=== PATIENT | female | born 1930 | race Caucasian/White ===

== ENCOUNTER → 2017-08-28 | Outpatient (CLI) | payer MEDICARE ==
--- NOTE | 2017-08-28 14:48 | XR ---
EXAMINATION TYPE: XR chest 2V DATE OF EXAM: 08/28/2017 COMPARISON: NONE HISTORY: COPD and dyspnea TECHNIQUE: Frontal and lateral views of the chest are obtained. FINDINGS: Left-sided pacemaker is present, there are leads in the right atrium and ventricle. Heart size is borderline increased. Increased lung lines could be indicative of COPD. No airspace disease, pneumothorax, or pleural effusion is evident. Arthropathy noted at the acromioclavicular joints. IMPRESSION: Borderline cardiac size.
== END | disposition home or self-care (01) ==
LOC: RADXRMAIN 13:07
PROVIDERS: ATTEND Family Medicine
DX: J44.9 Chronic obstructive pulmonary disease, unspecified (principal)
CPT/HCPCS: 71020

== ENCOUNTER 2018-01-02 14:23 | Emergency (ER) | payer MEDICARE ==
[2018-01-02 14:39] VITALS: TEMP 97.2
[2018-01-02] MEDS ORDERED: SODIUM CHLORIDE 0.9% 1,000 ML IV STA ×2 (14:50)
--- NOTE | 2018-01-02 15:04 | ED ---
General Adult HPI - General Chief complaint: Recheck/Abnormal Lab/Rx Stated complaint: aneurysm-sent by Dr. Tai Seen by Provider: 01/02/18 14:44 Source: patient, family, RN notes reviewed, old records reviewed Mode of arrival: wheelchair Limitations: no limitations - History of Present Illness Initial comments: This is an 87-year-old female to the ER for evaluation of outpatient lab study. Patient denies any complaints. Asymptomatic. Patient unsure of why she is in the hospital. She has no history of about pain no feelings of lightheadedness dizziness or weakness. No nausea vomiting, no recent fevers - Related Data Home Medications Medication Instructions Recorded Confirmed Albuterol Nebulized [Ventolin 2.5 mg INHALATION RT-TID 01/02/18 01/02/18 Nebulized] Albuterol Sulfate [Proair Hfa] 1 - 2 puff INHALATION RT-Q4H PRN 01/02/18 Alendronate Sodium [Fosamax] 70 mg PO TH 01/02/18 01/02/18 Aspirin 81 mg PO DAILY 01/02/18 01/02/18 Budesonide 1 mg INHALATION RT-BID 01/02/18 01/02/18 Calcium Carbonate [Calcium] 600 mg PO DAILY 01/02/18 01/02/18 Ensure 1 can PO BID 01/02/18 01/02/18 Lisinopril [Zestril] 2.5 mg PO DAILY 01/02/18 01/02/18 Lovastatin [Mevacor] 20 mg PO DAILY 01/02/18 01/02/18 Mometasone/Formoterol [Dulera 200 2 puff INHALATION RT-BID 01/02/18 01/02/18 Mcg/5 Mcg Inhaler] NIFEdipine XL [Procardia Xl] 30 mg PO DAILY 01/02/18 01/02/18 metFORMIN HCL [Glucophage] 1,000 mg PO AC-BRKFST 01/02/18 01/02/18 Allergies Allergy/AdvReac Type Severity Reaction Status Date / Time latex Allergy Rash/Hives Verified 01/02/18 14:58 Penicillins Allergy Rash/Hives Verified 01/02/18 14:58 strawberry Allergy Rash/Hives Verified 01/02/18 14:58 Review of Systems ROS Statement: Those systems with pertinent positive or pertinent negative responses have been documented in the HPI. ROS Other: All systems not noted in ROS Statement are negative. 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 Absent: scleral icterus, conjunctival injection, periorbital swelling ENT exam: Present: normal exam, mucous membranes moist Neck exam: Present: normal inspection. Absent: tenderness, meningismus, lymphadenopathy Respiratory exam: Present: normal lung sounds bilaterally. Absent: respiratory distress, wheezes, rales, rhonchi, stridor Cardiovascular Exam: Present: regular rate, normal rhythm, normal heart sounds. Absent: systolic murmur, diastolic murmur, rubs, gallop, clicks GI/Abdominal exam: Present: soft, normal bowel sounds. Absent: distended, tenderness, guarding, rebound, rigid Extremities exam: Present: normal inspection, full ROM, normal capillary refill. Absent: tenderness, pedal edema, joint swelling, calf tenderness Back exam: Present: normal inspection Neurological exam: Present: alert, oriented X3, CN II-XII intact Psychiatric exam: Present: normal affect, normal mood Skin exam: Present: warm, dry, intact, normal color. Absent: rash Course Vital Signs 01/02/18 14:34 Temperature 97.2 F L Pulse Rate 85 Respiratory 18 Rate Blood Pressure 148/67 O2 Sat by Pulse 94 L Oximetry - Reevaluation(s) Reevaluation #1: 01/02/18 15:02 Outpatient computed tomography scan is reviewed 01/02/18 15:02 Spoke with passive surgery risk control manager here at this hospital, recommends transfer [facility] Reevaluation #2: 01/02/18 15:02 Spoke with patient's family updated, questions answered Medical Decision Making - Medical Decision Making 87 female the ER for evaluation. Patient presents ER for evaluation regarding outpatient lab studies showing positive AAA, spoke with vascular surgery risk control manager who also spoke with vascular surgery at [facility] who have Accepted transfer a patient - Radiology Data Radiology results: report reviewed (CT abd pelvis positive AAA), image reviewed Critical Care Time Critical Care Time: Yes Total Critical Care Time: 31 Disposition Clinical Impression: Abdominal aortic aneurysm Disposition: OTHER INSTITUTION NOT DEFINED Condition: Critical Referrals: Lydia Hill MD [Primary Care Provider] - 1-2 days - Out of Hospital Transfer - Req. Specs Out of Hospital Transfer - Requested Specifics: Other Emergency Center ([facility])
[2018-01-02 15:12] VITALS: BP 158/83; PULSE 73; RESP 19
[2018-01-02 15:20] LABS: Basophils # (A) 0.1 k/uL (0-0.2); Basophils % (A) 1 %; Eosinophils # (A) 0.3 k/uL (0-0.7); Eosinophils % (A) 3 %; HCT 36.1 % (34.0-46.0); HGB 11.3 gm/dL (11.4-16.0); Hypochromasia Slight; Lymphocytes # (A) 1.9 k/uL (1.0-4.8); Lymphocytes % (A) 17 %; MCH 26.9 pg (25.0-35.0); MCHC 31.4 g/dL (31.0-37.0); MCV 85.8 fL (80.0-100.0); Mean Platelet Volume 7.5; Monocytes # (A) 0.6 k/uL (0-1.0); Monocytes % (A) 5 %; Neutrophils # (A) 8.2 k/uL (1.3-7.7); Neutrophils % (A) 73 %; Platelet Count 313 k/uL (150-450); RBC 4.21 m/uL (3.80-5.40); RDW 14.6 % (11.5-15.5); WBC 11.3 k/uL (3.8-10.6)
[2018-01-02 15:26] LABS: Partial Thromboplastin Time 23.5 sec (22.0-30.0)
[2018-01-02 15:31] LABS: Albumin 4.1 g/dL (3.5-5.0); Calcium 9.7 mg/dL (8.4-10.2); Magnesium 1.5 mg/dL (1.6-2.3); Potassium 4.6 mmol/L (3.5-5.1); Total Bilirubin 0.4 mg/dL (0.2-1.3)
[2018-01-02 15:45] LABS: Creatine Kinase 51 U/L (30-135)
[2018-01-02 15:56] LABS: Creatine Kinase MB 1.2 ng/mL (0.0-2.4)
[2018-01-02 15:58] LABS: Troponin I <0.012 ng/mL (0.000-0.034)
== END 2018-01-02 15:15 | disposition short-term general hospital (02) ==
LOC: EC 14:23
DX: I71.4 Abdominal aortic aneurysm, without rupture (principal); E78.5 Hyperlipidemia, unspecified; J44.9 Chronic obstructive pulmonary disease, unspecified; Z87.891 Personal history of nicotine dependence; Z79.51 Long term (current) use of inhaled steroids; Z79.82 Long term (current) use of aspirin; Z79.84 Long term (current) use of oral hypoglycemic drugs; Z79.899 Other long term (current) drug therapy; Z88.0 Allergy status to penicillin; Z91.018 Allergy to other foods; Z91.040 Latex allergy status
CPT/HCPCS: 99285 ×2; 36415 ×2; 86900; 86901; 80053; 82565; 82550; 82553; 83605; 83735; 84520; 84484; 85025; 85610; 85730; 86850; 71260; Q9967

== ENCOUNTER → 2018-01-02 | Outpatient (CLI) | payer MEDICARE ==
--- NOTE | 2018-01-02 13:55 | CT ---
EXAMINATION TYPE: CT chest w con DATE OF EXAM: 01/02/2018 COMPARISON: Radiograph 08/28/2017 HISTORY: 87-year-old female Solitary lung mass TECHNIQUE: Contiguous axial scanning of the chest after the administration of 100 mL of Omnipaque 300 . Coronal/sagittal reconstructions performed. CT DLP: 381.1mGycm. Automatic exposure control utilized for a dose reduction. FINDINGS: Left anterior chest wall pacemaker generator with right atrial and right ventricular leads. There is some nodularity within the inferior left thyroid gland which can be further evaluated with thyroid ul trasound, axial images 3 and 4. Heart upper limits of normal in size without pericardial effusion. Extensive coronary vessel calcific ations are present in remarkable for coronary artery disease. Ascending aorta measures normal size at 3.2 cm. There is conventional arterial vessel branching anato my with mild atherosclerotic narrowing at the left subclavian artery origin and moderate atherosclero tic calcifications, and eccentric and ulcerating plaque throughout the thoracic aorta. The mid descen ding thoracic aorta is aneurysmal at 3.4 cm and the distal descending thoracic aorta is aneurysmal at 3.7 cm. At least moderate atherosclerotic narrowing at the origin of the SMA and possibly severe at the origi n of the celiac axis. Prominent assess chronic changes at the origin of the bilateral renal arteries. There is a large infrarenal abdominal aortic aneurysm measuring 7.3 cm wide by 7.4 cm AP, series 8 im age 34 and series 9 image 57 on the coronal and sagittal plane, respectively. There is suggestion of some focal contrast extension into 2 areas of the prominent crescentic plaque/thrombus, axial image 7 4 and 81 with contrast collections measuring up to 1.5 and 1.3 cm, respectively. There is also appare nt displacement and thickening of the anterior wall measuring up to 1.8 cm, reference axial image 79 and series 9 sagittal image 58. The right common iliac artery is ectatic at 1.7 cm and the left common iliac artery near its bifurcat ion is ectatic at 1.5 cm. There is focal rounded groundglass density in the peripheral right upper lobe measuring 2.9 cm. A mor e confluent solid component along the superior margin of the density measures 9 mm. Some additional s atellite nodularity is present measuring up to 4 mm, axial image 20, 21, 24, and 29. Additional scattered pulmonary nodules measuring up to 5 mm sections in the subpleural right middle l obe axial image 34, right mid lung along the major fissure axial image 32. Not a consolidation or pleural effusion. COPD with mild upper lung emphysema. Bones: No osseous destructive process. IMPRESSION: 1. 7.4 cm AAA. There are 2 areas of focal bleeding into prominent mural based plaque/thrombus and hamida arent thickening of the anterior aneurysm wall suspicious for intramural hematoma and impending ruptu re. Urgent vascular surgery consultation recommended. 2. A 2.9 cm focal rounded area of groundglass in the right upper lobe. Lungs appear margin, a more so lid component measuring 9 mm is suggested. There are some satellite nodules in the right lung measuri ng up to 5 mm. Infectious or inflammatory etiology is including pneumonia and DECISION ANALYST are considerations. 3 month follow-up exam recommended to exclude lymphoma or JUDY. 3. COPD with mild emphysema. 4. Thyroid nodularity which can be further evaluated with thyroid ultrasound. Critical findings called to Kirstin Pulido at 1:50 PM. The clinician's office will contact the patient and also inform the emergency room to expect the patient shortly.
== END | disposition home or self-care (01) ==
LOC: RADCTMAIN 11:36
PROVIDERS: ATTEND Nurse Practitioner
DX: I71.4 Abdominal aortic aneurysm, without rupture (principal); R91.8 Other nonspecific abnormal finding of lung field; J43.9 Emphysema, unspecified; R58 Hemorrhage, not elsewhere classified
CPT/HCPCS: 82565; 84520; 71260; 36415; Q9967

== ENCOUNTER 2018-03-16 13:49 | Inpatient (IN) | payer MEDICARE ==
[2018-03-16] MEDS ORDERED: FUROSEMIDE 10 MG/ML 10 ML VIAL IV STA (13:52)
[2018-03-16] MEDS ORDERED: FUROSEMIDE 10 MG/ML 4 ML VIAL IV STA (13:52)
[2018-03-16] MEDS ORDERED: SODIUM CHLORIDE 0.9% 1,000 ML IV STA (13:58)
[2018-03-16] MEDS ORDERED: NITROGLYCERIN OINT 1 INCH/GM PACKET TOPICAL STA (14:05)
[2018-03-16 14:15] LABS: Basophils # (A) 0.1 k/uL (0-0.2); Basophils % (A) 0 %; Eosinophils % (A) 0 %; HCT 34.2 % (34.0-46.0); HGB 10.6 gm/dL (11.4-16.0); Hypochromasia Marked; Lymphocytes # (A) 4.1 k/uL (1.0-4.8); Lymphocytes % (A) 17 %; MCH 26.5 pg (25.0-35.0); MCV 85.6 fL (80.0-100.0); Mean Platelet Volume 7.2; Monocytes # (A) 0.7 k/uL (0-1.0); Monocytes % (A) 3 %; Neutrophils # (A) 18.9 k/uL (1.3-7.7); Neutrophils % (A) 79 %; Platelet Count 455 k/uL (150-450); RDW 15.4 % (11.5-15.5); WBC 24.1 k/uL (3.8-10.6)
[2018-03-16 14:19] LABS: ABG Base Excess -3.2 mmol/L; ABG HCO3 27 mmol/L (21-25); ABG PO2 129 mmHg (83-108); ABG TCO2 30 mmol/L (19-24)
[2018-03-16 14:23] LABS: Albumin 4.1 g/dL (3.5-5.0); Calcium 9.1 mg/dL (8.4-10.2); Potassium 5.4 mmol/L (3.5-5.1); Total Bilirubin 0.2 mg/dL (0.2-1.3); Total Protein 6.8 g/dL (6.3-8.2)
[2018-03-16 14:28] LABS: ABG PCO2 92 mmHg (35-45); ABG PH 7.07 (7.35-7.45)
[2018-03-16 14:33] LABS: Prothrombin Time 10.1 sec (9.0-12.0)
[2018-03-16] MEDS ORDERED: ETOMIDATE 2 MG/ML 10 ML VIAL IVP STA (14:39)
[2018-03-16] MEDS ORDERED: SUCCINYLCHOLINE CHLORIDE VIAL 200 MG/10 ML VIAL IV STA (14:39)
[2018-03-16 14:43] LABS: D-Dimer 12.26 mg/L FEU (<0.60)
[2018-03-16 14:44] LABS: Partial Thromboplastin Time 20.9 sec (22.0-30.0)
[2018-03-16 14:46] LABS: Creatine Kinase MB 0.8 ng/mL (0.0-2.4); Troponin I 0.025 ng/mL (0.000-0.034)
[2018-03-16] MEDS ORDERED: PROPOFOL 1,000 MG in EMPTY BAG 1 BAG IV ONE (14:48)
--- NOTE | 2018-03-16 15:18 | ED ---
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 Review of system was gone from the family severe shortness of breath coughing got worse and chest pain with deep breaths, worse in the later part of the morning on arrival she basically was unresponsive she was she was struggling hard to breath - Related Data Home Medications Medication Instructions Recorded Confirmed Albuterol Nebulized [Ventolin 2.5 mg INHALATION RT-TID 01/02/18 03/16/18 Nebulized] Albuterol Sulfate [Proair Hfa] 1 - 2 puff INHALATION RT-Q4H PRN 01/02/18 Alendronate Sodium [Fosamax] 70 mg PO TH 01/02/18 03/16/18 Aspirin 81 mg PO DAILY 01/02/18 03/16/18 Budesonide 1 mg INHALATION RT-BID 01/02/18 03/16/18 Calcium Carbonate [Calcium] 600 mg PO DAILY 01/02/18 03/16/18 Ensure 1 can PO BID 01/02/18 03/16/18 Lisinopril [Zestril] 2.5 mg PO DAILY 01/02/18 03/16/18 Lovastatin [Mevacor] 20 mg PO DAILY 01/02/18 03/16/18 Mometasone/Formoterol [Dulera 200 2 puff INHALATION RT-BID 01/02/18 03/16/18 Mcg/5 Mcg Inhaler] NIFEdipine XL [Procardia Xl] 30 mg PO DAILY 01/02/18 03/16/18 metFORMIN HCL [Glucophage] 1,000 mg PO AC-BRKFST 01/02/18 03/16/18 Ipratropium Nebulized [Atrovent 0.5 mg INHALATION RT-Q6H 03/16/18 03/16/18 Nebulized] Montelukast Sodium [Singulair] 10 mg PO DAILY 03/16/18 03/16/18 Allergies Allergy/AdvReac Type Severity Reaction Status Date / Time latex Allergy Rash/Hives Verified 03/16/18 15:57 Penicillins Allergy Rash/Hives Verified 03/16/18 15:57 strawberry Allergy Rash/Hives Verified 03/16/18 15:57 Review of Systems ROS Statement: Those systems with pertinent positive or pertinent negative responses have been documented in the HPI. ROS Other: All systems not noted in ROS Statement are negative. 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 Eye: Pupils are equal, round and reactive to light, extra-ocular movements are intact; there is normal conjunctiva bilaterally. Ears, nose, mouth and throat: There are moist mucous membranes and no oral lesions. Neck: The neck is supple, there is no tenderness him elevated JV T Cardiovascular: There is a regular rate and rhythm is mild tachycardia Respiratory: To auscultation bilateral, crackles all the way to the top of the lungs bilateral Gastrointestinal: Soft, non-distended, non-tender abdomen without masses or organomegaly noted. There is no rebound or guarding present. Bowel sounds are unremarkable. Back: There is no tenderness to palpation in the midline. There is no obvious deformity. Musculoskeletal: Normal ROM, no tenderness, There is no pedal edema. There is no calf tenderness or swelling. No cords were appreciated. Neurological: CN II-XII intact, Cranial nerves III through XII are intact. There are no obvious motor or sensory deficits. Coordination appears grossly intact. Speech is normal. Psychiatric: Cooperative Limitations: altered mental status Course Vital Signs 03/16/18 03/16/18 03/16/18 13:56 14:10 14:26 Temperature 97.4 F L Pulse Rate 99 87 Pulse Rate [ 92 Slp Teacher ] Respiratory 28 H 24 Rate Blood Pressure 178/79 185/70 O2 Sat by Pulse 96 96 Oximetry 03/16/18 03/16/18 03/16/18 14:48 15:40 15:48 Temperature Pulse Rate 74 55 L 53 L Pulse Rate [ Slp Teacher ] Respiratory 24 20 20 Rate Blood Pressure 153/66 126/56 106/53 O2 Sat by Pulse 100 100 Oximetry 03/16/18 03/16/18 16:04 16:09 Temperature Pulse Rate Pulse Rate [ Slp Teacher ] Respiratory 20 Rate Blood Pressure 95/53 99/52 O2 Sat by Pulse 98 Oximetry EKG is atrial sensed ventricular paced rhythm ventricular rate is 101 LA interval is 176 QRS duration is 176 QT/QTC 396/520 this is a paced EKG She'll be admitted to Dr. Rodriguez and Dr. Bobby being the consult - Reevaluation(s) Reevaluation #1: CODE STATUS was discussed with the family, she is a full code for now 03/16/18 15:40 Procedures - Intubation Time Out Performed: Yes Sedative: Propofol Paralytic: Succinylcholine Laryngoscope: fiber optic video scope Size: 3 ET Tube Size: 7.5 ET Tube Uncuffed: Yes Tube Secured Depth (cm): 22 Tube Placement Confirmation: visualized tube passing through cords, equal breath sounds bilaterally, confirmation by capnometry Patient Tolerated Procedure: well Medical Decision Making - Lab Data Result diagrams: 03/16/18 13:54 03/16/18 13:54 Lab Results 03/16/18 03/16/18 03/16/18 Range/Units 13:54 13:54 13:54 WBC 24.1 H (3.8-10.6) k/uL RBC 4.00 (3.80-5.40) m/uL Hgb 10.6 L (11.4-16.0) gm/dL Hct 34.2 (34.0-46.0) % MCV 85.6 (80.0-100.0) fL MCH 26.5 (25.0-35.0) pg MCHC 31.0 (31.0-37.0) g/dL RDW 15.4 (11.5-15.5) % Plt Count 455 H (150-450) k/uL Neutrophils % 79 % Lymphocytes % 17 % Monocytes % 3 % Eosinophils % 0 % Basophils % 0 % Neutrophils # 18.9 H (1.3-7.7) k/uL Lymphocytes # 4.1 (1.0-4.8) k/uL Monocytes # 0.7 (0-1.0) k/uL Eosinophils # 0.0 (0-0.7) k/uL Basophils # 0.1 (0-0.2) k/uL Hypochromasia Marked PT (9.0-12.0) sec INR (<1.2) APTT (22.0-30.0) sec D-Dimer (<0.60) mg/L FEU Sample Site ABG pH (7.35-7.45) ABG pCO2 (35-45) mmHg ABG pO2 (83-108) mmHg ABG HCO3 (21-25) mmol/L ABG Total CO2 (19-24) mmol/L ABG O2 Saturation (94-97) % ABG Base Excess mmol/L Robert Test FiO2 % Sodium 142 (137-145) mmol/L Potassium 5.4 H (3.5-5.1) mmol/L Chloride 102 (98-107) mmol/L Carbon Dioxide 26 (22-30) mmol/L Anion Gap 14 mmol/L BUN 24 H (7-17) mg/dL Creatinine 1.10 H (0.52-1.04) mg/dL Est GFR (CKD-EPI)AfAm 53 (>60 ml/min/1.73 sqM) Est GFR (CKD-EPI)NonAf 46 (>60 ml/min/1.73 sqM) Glucose 233 H (74-99) mg/dL Plasma Lactic Acid David (0.7-2.0) mmol/L Calcium 9.1 (8.4-10.2) mg/dL Total Bilirubin 0.2 (0.2-1.3) mg/dL AST 17 (14-36) U/L ALT 21 (9-52) U/L Alkaline Phosphatase 55 (38-126) U/L Total Creatine Kinase 25 L (30-135) U/L CK-MB (CK-2) 0.8 (0.0-2.4) ng/mL CK-MB (CK-2) Rel Index 3.2 Troponin I 0.025 (0.000-0.034) ng/mL NT-Pro-B Natriuret Pep pg/mL Total Protein 6.8 (6.3-8.2) g/dL Albumin 4.1 (3.5-5.0) g/dL 03/16/18 03/16/18 03/16/18 Range/Units 13:54 13:54 13:54 WBC (3.8-10.6) k/uL RBC (3.80-5.40) m/uL Hgb (11.4-16.0) gm/dL Hct (34.0-46.0) % MCV (80.0-100.0) fL MCH (25.0-35.0) pg MCHC (31.0-37.0) g/dL RDW (11.5-15.5) % Plt Count (150-450) k/uL Neutrophils % % Lymphocytes % % Monocytes % % Eosinophils % % Basophils % % Neutrophils # (1.3-7.7) k/uL Lymphocytes # (1.0-4.8) k/uL Monocytes # (0-1.0) k/uL Eosinophils # (0-0.7) k/uL Basophils # (0-0.2) k/uL Hypochromasia PT 10.1 (9.0-12.0) sec INR 1.0 (<1.2) APTT 20.9 L (22.0-30.0) sec D-Dimer 12.26 H (<0.60) mg/L FEU Sample Site ABG pH (7.35-7.45) ABG pCO2 (35-45) mmHg ABG pO2 (83-108) mmHg ABG HCO3 (21-25) mmol/L ABG Total CO2 (19-24) mmol/L ABG O2 Saturation (94-97) % ABG Base Excess mmol/L Robert Test FiO2 % Sodium (137-145) mmol/L Potassium (3.5-5.1) mmol/L Chloride (98-107) mmol/L Carbon Dioxide (22-30) mmol/L Anion Gap mmol/L BUN (7-17) mg/dL Creatinine (0.52-1.04) mg/dL Est GFR (CKD-EPI)AfAm (>60 ml/min/1.73 sqM) Est GFR (CKD-EPI)NonAf (>60 ml/min/1.73 sqM) Glucose (74-99) mg/dL Plasma Lactic Acid David 1.2 (0.7-2.0) mmol/L Calcium (8.4-10.2) mg/dL Total Bilirubin (0.2-1.3) mg/dL AST (14-36) U/L ALT (9-52) U/L Alkaline Phosphatase (38-126) U/L Total Creatine Kinase (30-135) U/L CK-MB (CK-2) (0.0-2.4) ng/mL CK-MB (CK-2) Rel Index Troponin I (0.000-0.034) ng/mL NT-Pro-B Natriuret Pep 8180 pg/mL Total Protein (6.3-8.2) g/dL Albumin (3.5-5.0) g/dL 03/16/18 Range/Units 14:10 WBC (3.8-10.6) k/uL RBC (3.80-5.40) m/uL Hgb (11.4-16.0) gm/dL Hct (34.0-46.0) % MCV (80.0-100.0) fL MCH (25.0-35.0) pg MCHC (31.0-37.0) g/dL RDW (11.5-15.5) % Plt Count (150-450) k/uL Neutrophils % % Lymphocytes % % Monocytes % % Eosinophils % % Basophils % % Neutrophils # (1.3-7.7) k/uL Lymphocytes # (1.0-4.8) k/uL Monocytes # (0-1.0) k/uL Eosinophils # (0-0.7) k/uL Basophils # (0-0.2) k/uL Hypochromasia PT (9.0-12.0) sec INR (<1.2) APTT (22.0-30.0) sec D-Dimer (<0.60) mg/L FEU Sample Site R radial ABG pH 7.07 L* (7.35-7.45) ABG pCO2 92 H* (35-45) mmHg ABG pO2 129 H (83-108) mmHg ABG HCO3 27 H (21-25) mmol/L ABG Total CO2 30 H (19-24) mmol/L ABG O2 Saturation 97.0 (94-97) % ABG Base Excess -3.2 mmol/L Robert Test Yes FiO2 65 % Sodium (137-145) mmol/L Potassium (3.5-5.1) mmol/L Chloride (98-107) mmol/L Carbon Dioxide (22-30) mmol/L Anion Gap mmol/L BUN (7-17) mg/dL Creatinine (0.52-1.04) mg/dL Est GFR (CKD-EPI)AfAm (>60 ml/min/1.73 sqM) Est GFR (CKD-EPI)NonAf (>60 ml/min/1.73 sqM) Glucose (74-99) mg/dL Plasma Lactic Acid David (0.7-2.0) mmol/L Calcium (8.4-10.2) mg/dL Total Bilirubin (0.2-1.3) mg/dL AST (14-36) U/L ALT (9-52) U/L Alkaline Phosphatase (38-126) U/L Total Creatine Kinase (30-135) U/L CK-MB (CK-2) (0.0-2.4) ng/mL CK-MB (CK-2) Rel Index Troponin I (0.000-0.034) ng/mL NT-Pro-B Natriuret Pep pg/mL Total Protein (6.3-8.2) g/dL Albumin (3.5-5.0) g/dL Critical Care Time Total Critical Care Time: 60 Critical Care Time: She was seen within the minutes after arrival to the ER, she was in a severe severe distress BiPAP was started right away and after listening to her lungs I ordered nitro paste 1 inch and Lasix 60 mg for congestive heart failure she seemed overloaded with the fluids and then we did the ABGs after starting the BiPAP pH was 7.07 and pCO2 was 92 after reviewing the blood gases, decided to intubate her she still quite lethargic 1 open her eyes and respond to the room she was intubated moved to the trauma room, orogastric tube was passed out as well confirmation was done with the bilateral breath sounds. He reviewed the labs white count is 27 d-dimer is quite elevated but she is not a candidate for CT chest angiogram she would need a VQ scan because her GFR is quite low BNP is 8000 180 troponin is negative she be admitted to ICU , Dr. Rm has been paged Disposition Clinical Impression: Pulmonary edema, Pneumonia, Respiratory failure Disposition: ADMITTED IP TO THIS HOSP
[2018-03-16] MEDS ORDERED: LEVOFLOXACIN 750MG-D5W PMX 750 MG in DEXTROSE/WATER 1 150ML.BAG IVPB STA (15:20)
[2018-03-16] MEDS ORDERED: cefTRIAXone 2,000 MG in SODIUM CHLORIDE 0.9% 100 ML IVPB STA (15:20)
[2018-03-16] MEDS ORDERED: MIDAZOLAM (PF) 1 MG/ML 5 ML VIAL IV STA (15:21)
[2018-03-16] MEDS ORDERED: NALOXONE 0.4 MG/ML 1 ML VIAL IV PRN (15:22)
[2018-03-16] MEDS ORDERED: MORPHINE SULFATE 4 MG/ML SYRINGE IV PRN (15:22)
[2018-03-16] MEDS ORDERED: cefTRIAXone IN SWFI 2,000 MG/20 ML SYRINGE IVP STA (15:27)
[2018-03-16] MEDS ORDERED: ALBUTEROL NEBULIZED 2.5 MG/3 ML INHALATION PRN (15:38)
[2018-03-16] MEDS ORDERED: MIDAZOLAM 2 MG/2 ML VIAL IV STA (15:48)
[2018-03-16 15:55] LABS: ABG PH 7.16 (7.35-7.45)
[2018-03-16 15:56] LABS: ABG Base Excess -3.7 mmol/L; ABG HCO3 25 mmol/L (21-25); ABG Oxygen Saturation 99.5 % (94-97); ABG PCO2 70 mmHg (35-45); ABG PO2 301 mmHg (83-108); ABG TCO2 27 mmol/L (19-24)
--- NOTE | 2018-03-16 16:00 | XR ---
EXAMINATION TYPE: XR chest 1V portable DATE OF EXAM: 03/16/2018 COMPARISON: 08/28/2017 INDICATION: Difficulty breathing, intubation TECHNIQUE: Single frontal view of the chest is obtained. FINDINGS: The heart size is normal. The pulmonary vasculature is prominent. There is an infiltrate in the left lung. Mild increased lung markings are present on the right. Cody elate for pulmonary edema. There is an endotracheal tube placed with the tip above the nelda. Nasogastric tube transverses the thorax with the tip in the midabdomen. Electronic device overlies left chest. EKG leads overlie the c hest. IMPRESSION: 1. Findings suggestive for pulmonary edema. Clinical correlation is recommended. Differential could i nclude pneumonia and other infectious etiologies. 2. Lines and catheters discussed above.
[2018-03-16] MEDS ORDERED: KETAMINE 10 MG/ML 20 ML VIAL IV ONE (16:10)
[2018-03-16] MEDS ORDERED: RX INFO: IV CONTRAST WAS GIVEN 1 EACH MISC MISCELLANE PRN (16:15)
--- NOTE | 2018-03-16 16:49 | CT ---
CT CHEST FOR PULMONARY EMBOLISM. EXAMINATION TYPE: CT angio chest DATE OF EXAM: 03/16/2018 INDICATION: Elevated D-Dimer CT DLP: 402 mGycm, Automated exposure control for dose reduction was used. CONTRAST: Patient injected with 80 mL of Isovue 370. COMPARISON: 01/02/2018 TECHNIQUE: CT of the chest is performed on a spiral scan at 2 mm thick sections. Study is performed with intravenous contrast timed for evaluation for pulmonary embolism. This will limit additional po rtions of the evaluation. 3-D MIP images reconstructed by the technologist are reviewed on the compu ter in the coronal and sagittal planes. FINDINGS: No persistent filling defects are evident to suggest an acute pulmonary embolism. There is a 1.1 cm aortopulmonic window lymph node present. Additional suspicious enlarged lymphadenop athy is not identified. The ascending aorta diameter at the level of the main pulmonary artery is 3. 3 cm. The main pulmonary artery diameter at the bifurcation is 2.8 cm. Small bilateral pleural effusions are present. Compressive atelectasis is adjacent. There is some mil d infiltrate in the left lower lobe. Scattered infiltrate is within the lingula. These findings are a n interval finding from 01/02/2018. There is a focal area of pneumonitis in the right upper lobe. Some underlying soft tissue density hamida ears to be present is estimated to measure 1.5 x 1.8 cm in size. Appears somewhat improved from the c omparison. Endotracheal tube tip is above the nelda. Nasogastric tube transverses the thorax with tip in body o f the stomach. Note is made of stent placement within the abdominal aorta within the [id number]. R ight kidney appears atrophic. Pancreas is atrophic. IMPRESSIONS: 1. No acute pulmonary embolism. 2. Pneumonitis soft tissue density right upper lobe appears smaller than the comparison of 01/02/2018. 3. New areas of infiltrate bilaterally discussed above
[2018-03-16] MEDS: PROPOFOL 1,000 MG in EMPTY BAG 1 BAG IV SCH ×2 (16:50→20:53)
[2018-03-16 17:13] LABS: Glucose,Whole Blood 194 mg/dL (75-99)
--- NOTE | 2018-03-16 17:15 | P.CNPUL ---
History of Present Illness Consult date: 03/16/18 Reason for consult: dyspnea, hypoxemia, pneumonia, lung mass, abnormal CXR/CT Chief complaint: Shortness of breath, respiratory failure History of present illness: Pulmonary consult dated 03/16/2018 This is an 87-year-old female who apparently presented to the emergency room with shortness of breath that began the day of admission. The patient was placed on BiPAP for poor saturations but did not tolerate that and the decision was made by the emergency room physician to intubate the patient. She was intubated had a chest x-ray which showed diffuse infiltrates consistent with heart failure. The patient had an elevated N-terminal proBNP. She went for a CT angiogram. There is no evidence of pulmonary embolism. She did have diffuse infiltrates consistent with either heart failure or pneumonia. There is also a mass in the right upper lobe and some diffuse adenopathy. In addition she has significant bilateral pleural effusions. Again, her N- terminal proBNP was elevated at 8180. The patient was given some Levaquin and Rocephin in the emergency room and transferred up to the ICU. She apparently has a known history of lung cancer but apparently has not has not wanted any treatment for lung cancer. I am not sure how was diagnosed. The lung cancer may represent that mastectomy in the right upper lobe. In addition, the patient has a history of diabetes hypertension COPD hyperlipidemia. ALLERGIES include latex penicillin and strawberries. Medications included Singulair Atrovent nebulizer treatments Glucophage Procardia XL Dulera lovastatin lisinopril albuterol updrafts albuterol inhaler Fosamax aspirin calcium carbonate and Ensure. I asked the emergency room physician to discuss CODE STATUS with the family but I don't know that it was done. 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 History of Any Multi-Drug Resistant Organisms: None Reported Past Surgical History: Bladder Surgery, Hysterectomy, Pacemaker Past Psychological History: No Psychological Hx Reported Smoking Status: Former smoker Past Alcohol Use History: None Reported Past Drug Use History: None Reported Medications and Allergies Home Medications Medication Instructions Recorded Confirmed Type Albuterol Nebulized [Ventolin 2.5 mg INHALATION RT-TID 01/02/18 03/16/18 History Nebulized] Albuterol Sulfate [Proair Hfa] 1 - 2 puff INHALATION RT-Q4H PRN 01/02/18 History Alendronate Sodium [Fosamax] 70 mg PO TH 01/02/18 03/16/18 History Aspirin 81 mg PO DAILY 01/02/18 03/16/18 History Budesonide 1 mg INHALATION RT-BID 01/02/18 03/16/18 History Calcium Carbonate [Calcium] 600 mg PO DAILY 01/02/18 03/16/18 History Ensure 1 can PO BID 01/02/18 03/16/18 History Lisinopril [Zestril] 2.5 mg PO DAILY 01/02/18 03/16/18 History Lovastatin [Mevacor] 20 mg PO DAILY 01/02/18 03/16/18 History Mometasone/Formoterol [Dulera 200 2 puff INHALATION RT-BID 01/02/18 03/16/18 History Mcg/5 Mcg Inhaler] NIFEdipine XL [Procardia Xl] 30 mg PO DAILY 01/02/18 03/16/18 History metFORMIN HCL [Glucophage] 1,000 mg PO AC-[id number] 01/02/18 03/16/18 History Ipratropium Nebulized [Atrovent 0.5 mg INHALATION RT-Q6H 03/16/18 03/16/18 History Nebulized] Montelukast Sodium [Singulair] 10 mg PO DAILY 03/16/18 03/16/18 History Allergies Allergy/AdvReac Type Severity Reaction Status Date / Time latex Allergy Rash/Hives Verified 03/16/18 15:57 Penicillins Allergy Rash/Hives Verified 03/16/18 15:57 strawberry Allergy Rash/Hives Verified 03/16/18 15:57 Physical Exam Osteopathic Statement: *. No significant issues noted on an osteopathic structural exam other than those noted in the History and Physical/Consult. Vitals: Vital Signs Temp Pulse Pulse Resp BP Pulse Ox 03/16/18 16:22 51 L 20 106/53 100 03/16/18 16:09 99/52 03/16/18 16:04 20 95/53 98 03/16/18 15:48 53 L 20 106/53 100 03/16/18 15:40 55 L 20 126/56 100 03/16/18 14:48 74 24 153/66 03/16/18 14:26 87 24 185/70 96 03/16/18 14:10 92 03/16/18 13:56 97.4 F L 99 28 H 178/79 96 Intake and Output 03/16/18 03/16/18 03/16/18 06:59 14:59 22:59 Intake Total 13.105 Output Total 225 Balance -211.895 Intake: Intake, IV Titration 13.105 Amount Propofol 1,000 mg In 13.105 Empty Bag 1 bag @ 10 MCG/ KG/MIN 3.97 mls/hr IV . Q24H [facility] Rx#:[id number] Output: Urine 225 Uretheral ([place]) 225 Other: Weight 66.224 kg No acute distress, sedated with an orally placed endotracheal tube. HEENT examination is grossly unremarkable. Mucous membranes are moist. Neck supple. Full range of motion. No adenopathy thyromegaly or neck vein distention. Cardiovascular examination reveals regular rhythm rate. S1-S2 normal. No S3 or S4. No discernible murmur noted. Lungs reveal diffuse bilateral rhonchi and crackles. Breath sounds are equal bilaterally. Abdomen soft with bowel sounds. No masses or tenderness. Extremities are intact. No cyanosis clubbing or edema. Skin is without rash or lesion. Neurologic examination could not be adequately assessed. Results - Laboratory Findings CBC and BMP: 03/16/18 13:54 03/16/18 13:54 ABG ABG pH 7.16 (7.35-7.45) L* 03/16/18 15:39 ABG pCO2 70 mmHg (35-45) H* 03/16/18 15:39 ABG pO2 301 mmHg (83-108) H 03/16/18 15:39 ABG O2 Saturation 99.5 % (94-97) H 03/16/18 15:39 PT/INR, D-dimer PT 10.1 sec (9.0-12.0) 03/16/18 13:54 INR 1.0 (<1.2) 03/16/18 13:54 D-Dimer 12.26 mg/L FEU (<0.60) H 03/16/18 13:54 Abnormal lab findings: Abnormal Labs 03/16/18 03/16/18 03/16/18 13:54 13:54 13:54 WBC 24.1 H Hgb 10.6 L Plt Count 455 H Neutrophils # 18.9 H APTT D-Dimer ABG pH ABG pCO2 ABG pO2 ABG HCO3 ABG Total CO2 ABG O2 Saturation Potassium 5.4 H BUN 24 H Creatinine 1.10 H Glucose 233 H Total Creatine Kinase 25 L 03/16/18 03/16/18 03/16/18 13:54 14:10 15:39 WBC Hgb Plt Count Neutrophils # APTT 20.9 L D-Dimer 12.26 H ABG pH 7.07 L* 7.16 L* ABG pCO2 92 H* 70 H* ABG pO2 129 H 301 H ABG HCO3 27 H ABG Total CO2 30 H 27 H ABG O2 Saturation 99.5 H Potassium BUN Creatinine Glucose Total Creatine Kinase - Diagnostic Findings Chest x-ray: report reviewed, image reviewed CT scan - chest: report reviewed (Labs, x-rays, and medications are reviewed.), image reviewed Assessment and Plan Assessment: Assessment Acute respiratory failure, likely multifactorial, in part related to heart failure, possible pneumonia, and possible COPD exacerbation. Vague history of lung cancer No evidence of pulmonary embolism History of COPD History of hypertension History of hyperlipidemia Previous history of tobacco use Multiple other medical problems and comorbidities Plan: Plan dated 03/16/2018 The patient is on the assist control mode rate of 14, tidal volume 350, FiO2 of 100%, and PEEP of 5. Arterial blood gases show a PaO2 of 301 PaCO2 of 69 and a pH is 7.16. The rate was increased to 22 and the FiO2 was dropped from 150%. The patient's currently on a saline IV at 20 mL an hour and definitive 25 mics per kilogram per minute. We will implement updrafts with DuoNeb every 4 around- the-clock. We'll also make sure the vent bundle orders were implemented as well as the ICU admission orders. I gnosis is poor. We'll talk to the family about CODE STATUS given the history of lung cancer. Apparently was also a history of oral cancer. Additional recommendations and suggestions are forthcoming. Time with Patient: Greater than 30
[2018-03-16 18:10] VITALS: BMI 24.3
[2018-03-16] MEDS: FORMOTEROL FUMARATE 20 MCG/2 ML NEBU INHALATION SCH (19:19)
[2018-03-16] MEDS: BUDESONIDE 1 MG/2 ML NEBU INHALATION SCH (19:19)
[2018-03-16] MEDS: IPRATROPIUM-ALBUTEROL 3 ML NEB INHALATION SCH ×2 (19:19→23:30)
[2018-03-16] MEDS ORDERED: SYMBICORT 160-4.5 MCG INHALER INHALATION SCH (20:00)
[2018-03-16] MEDS ORDERED: ALBUTEROL NEBULIZED 2.5 MG/3 ML INHALATION SCH (20:00)
[2018-03-16] MEDS ORDERED: NON-FORMULARY DRUG (Ensure 1 CAN) PO SCH (21:00)
[2018-03-16 21:18] LABS: Glucose,Whole Blood 169 mg/dL (75-99)
[2018-03-16] MEDS: TIMOLOL 0.5% OPHTH DROPS 5 ML BTL BOTH EYES SCH (21:59)
[2018-03-16] MEDS: CHLORHEXIDINE GLUCONATE 15 ML CUP MUCOUS MEM SCH (21:59)
[2018-03-17 00:24] LABS: Glucose,Whole Blood 161 mg/dL (75-99)
[2018-03-17] MEDS: INSULIN ASPART 100 UNIT/ML 1 ML 10 ML VIAL SQ SCH ×5 (00:27→20:02)
[2018-03-17] MEDS: IPRATROPIUM-ALBUTEROL 3 ML NEB INHALATION SCH ×5 (03:28→20:42)
[2018-03-17 04:21] LABS: Basophils % (A) 0 %; Eosinophils % (A) 0 %; HCT 27.2 % (34.0-46.0); Hypochromasia Moderate; Lymphocytes # (A) 0.8 k/uL (1.0-4.8); Lymphocytes % (A) 9 %; MCH 26.2 pg (25.0-35.0); MCHC 31.6 g/dL (31.0-37.0); Monocytes # (A) 0.3 k/uL (0-1.0); Monocytes % (A) 4 %; Neutrophils % (A) 86 %; Platelet Count 232 k/uL (150-450); RBC 3.28 m/uL (3.80-5.40); RDW 15.3 % (11.5-15.5); WBC 8.1 k/uL (3.8-10.6)
[2018-03-17 04:22] LABS: ALT 24 U/L (9-52); AST 13 U/L (14-36); Albumin 3.2 g/dL (3.5-5.0); Alkaline Phosphatase 42 U/L (38-126); Anion Gap 13 mmol/L; Blood Urea Nitrogen 31 mg/dL (7-17); Calcium 8.6 mg/dL (8.4-10.2); Carbon Dioxide 24 mmol/L (22-30); Chloride 102 mmol/L (98-107); Glucose 137 mg/dL (74-99); Magnesium 1.5 mg/dL (1.6-2.3); Phosphorus 4.7 mg/dL (2.5-4.5); Potassium 4.8 mmol/L (3.5-5.1); Sodium 139 mmol/L (137-145); Total Bilirubin <0.1 mg/dL (0.2-1.3); Total Protein 5.3 g/dL (6.3-8.2)
[2018-03-17 04:24] LABS: HGB 8.6 gm/dL (11.4-16.0)
[2018-03-17] MEDS ORDERED: Magnesium Replacement Protocol 1 EACH MISC MISCELLANE PRN (04:42)
[2018-03-17] MEDS: PROPOFOL 1,000 MG in EMPTY BAG 1 BAG IV SCH ×2 (05:42→06:55)
[2018-03-17 05:44] LABS: ABG HCO3 26 mmol/L (21-25); ABG PCO2 48 mmHg (35-45); ABG PH 7.34 (7.35-7.45); ABG PO2 103 mmHg (83-108); ABG TCO2 27 mmol/L (19-24)
[2018-03-17] MEDS: MAGNESIUM SULFATE-D5W PMX 1 GM in DEXTROSE/WATER 1 100ML.BAG IVPB SCH ×2 (06:19→07:45)
[2018-03-17 06:36] LABS: Glucose,Whole Blood 171 mg/dL (75-99)
[2018-03-17] MEDS: FORMOTEROL FUMARATE 20 MCG/2 ML NEBU INHALATION SCH ×2 (07:08→20:42)
[2018-03-17] MEDS: BUDESONIDE 1 MG/2 ML NEBU INHALATION SCH ×2 (07:08→20:42)
[2018-03-17 07:14] LABS: Appearance,Urine Clear (Clear); Bilirubin,Urine Negative (Negative); Blood,Urine Negative (Negative); Color,Urine Light Yellow; Glucose,Urine (UA) Negative (Negative); Ketones,Urine Negative (Negative); Leukocyte Esterase,Urine Moderate (Negative); Mucus,Urine Rare /hpf; Nitrite,Urine Negative (Negative); Protein,Urine Negative (Negative); RBC,Urine 4 /hpf (0-5); Specific Gravity,Urine 1.019 (1.001-1.035); Squamous Epithelial Cell,Urine 1 /hpf (0-4); Urobilinogen,Urine <2.0 mg/dL (<2.0); WBC,Urine 20 /hpf (0-5)
--- NOTE | 2018-03-17 07:18 | XR ---
EXAMINATION TYPE: XR chest 1V portable DATE OF EXAM: 03/17/2018 COMPARISON: 03/16/2018 HISTORY: Ventilatory dependent respiratory failure TECHNIQUE: Single frontal view of the chest is obtained. FINDINGS: There is marked improvement of the previously seen pulmonary edema. Hazy bibasilar opaciti es remain as well as a small left layering pleural effusion. Endotracheal and enteric tubes are simil ar in position. Partial visualization of an endograft. Dual lead cardiac device is seen on the left w ith prominent size of the cardiomediastinal silhouette, stable. Osseous structures are generally rosalinda neralized. IMPRESSION: Marked improvement of the previously seen pulmonary vascular congestion, now minimal wit h bibasilar probable atelectasis and small left layering pleural effusion remaining.
[2018-03-17] MEDS: ENOXAPARIN 40 MG/0.4 ML SYRINGE SQ SCH (08:44)
[2018-03-17] MEDS: CHLORHEXIDINE GLUCONATE 15 ML CUP MUCOUS MEM SCH (08:44)
[2018-03-17] MEDS: PANTOPRAZOLE 40 MG/10 ML VIAL IVP SCH (08:44)
[2018-03-17] MEDS: TIMOLOL 0.5% OPHTH DROPS 5 ML BTL BOTH EYES SCH ×2 (08:45→20:00)
[2018-03-17] MEDS ORDERED: ATORVASTATIN 10 MG TAB PO SCH (09:00)
[2018-03-17] MEDS ORDERED: NIFEdipine XL 30 MG TAB.ER.24 PO SCH (09:00)
[2018-03-17] MEDS ORDERED: LISINOPRIL 2.5 MG TAB PO SCH (09:00)
[2018-03-17] MEDS ORDERED: ATENOLOL 25 MG TAB PO SCH (09:00)
--- NOTE | 2018-03-17 10:54 | P.PN ---
Subjective Progress Note Date: 03/17/18 (Critical care time 45 minutes) Principal diagnosis: Acute COPD exacerbation, acute on chronic hypoxic and hypercapnic history failure, acute exacerbation of CHF, bilateral pleural effusion, community- acquired pneumonia, history of right upper lobe lung mass, 03/17/2018, 87-year-old female with extensive history of smoking and nicotine use also has a history of the ill-defined lung mass in the right upper lobe found about 3 months ago patient refused aggressive intervention including biopsy patient is currently being evaluated with radiographic studies, also has a oral lesion by history with multiple biopsies revealed precancerous which is also being monitor observe, data predominantly obtained from the patient's as well as 2 daughters present at bedside for last 2 weeks patient has not been feeling very well with dyspnea on exertion which progressively got worse intermittent nonproductive dry cough is present as well with those problem patient presented into the emergency department, on day of admission patient got extremely short of breath in the emergency department was not able to talk on arrival due to severe difficulty in breathing was intubated for airway protection at the same time patient was unresponsive as well. Patient was placed on assist control mode with rate of 14, tidal volume of 350, and 100 % oxygen, with PEEP of 5. Put patient on CPAP of 5 and pressure support of 5 weaning parameters reviewed arterial blood gas currently pending patient is off of sedation arousable opens eyes follow simple commands radiographic studies laboratory data reviewed, computed tomography scan of the chest reviewed as well which revealed right upper lobe ill-defined mass along with bilateral pleural effusions and interstitial edema findings are highly suggestive of congestive heart failure however occult pneumonia cannot be excluded, currently patient had treated with broad-spectrum antibiotics in the emergency department now currently only on bronchodilators with DVT and peptic ulcer disease prophylaxis I urine culture is negative sputum is positive for gram-positive cocci with moderate polymorph leukocytes urine, analysis positive for leukocyte esterase Objective - Vital Signs Vital signs: Vital Signs Temp 98.1 F 03/17/18 08:00 Pulse 59 L 03/17/18 10:00 Resp 15 03/17/18 10:00 BP 119/56 03/17/18 10:00 Pulse Ox 100 03/17/18 10:00 Intake & Output 03/16/18 03/17/18 03/17/18 18:59 06:59 18:59 Intake Total 72.438 776.033 346.070 Output Total 475 1140 210 Balance -402.562 -363.967 136.070 Weight 66.22 kg 68.3 kg Intake: IV 50 600 200 Sodium Chloride 0.9% 1, 50 600 200 000 ml @ 50 mls/hr IV . Q20H [facility] Rx#:[id number] Intake, IV Titration 22.438 176.033 146.070 Amount Magnesium Sulfate-D5w Pmx 100 1 gm In Dextrose/Water 1 100ml.bag @ 100 mls/hr IVPB Q1H [facility] Rx#: [id number] Propofol 1,000 mg In 13.105 Empty Bag 1 bag @ 10 MCG/ KG/MIN 3.97 mls/hr IV . Q24H [facility] Rx#:[id number] Propofol 1,000 mg In 9.333 176.033 46.070 Empty Bag 1 bag @ Titrate IV .Q0M [facility] Rx#: [id number] Output: Urine 475 1140 210 Uretheral ([place]) 225 Other: Voiding Method Indwelling Catheter Indwelling Catheter Indwelling Catheter - Constitutional General appearance: Present: average body habitus, cooperative, disheveled, mild distress, no acute distress, thin - EENT Eyes: Present: PERRLA, normal appearance Ears: bilateral: normal - Neck Neck: Present: normal ROM Carotids: bilateral: upstroke normal, bruit absent Thyroid: bilateral: normal size - Respiratory Respiratory: bilateral: diminished (At the bases with dullness to percussion), dullness, rales, prolonged expiration, negative: rhonchi, wheezing - Cardiovascular Heart sounds: normal: S1, S2 - Gastrointestinal General gastrointestinal: Present: decreased bowel sounds, soft - Integumentary Integumentary: Present: normal turgor - Neurologic Neurologic Comment(s): Normal neuro exam follow simple commands moving all 4 extremity, makes good eye contact off of sedation Neurologic: Present: CNII-XII intact - Labs CBC & Chem 7: 03/17/18 03:55 03/17/18 03:55 Labs: Abnormal Lab Results - Last 24 Hours (Table) 03/16/18 03/16/18 03/16/18 Range/Units 13:54 13:54 13:54 WBC 24.1 H (3.8-10.6) k/uL RBC (3.80-5.40) m/uL Hgb 10.6 L (11.4-16.0) gm/dL Hct (34.0-46.0) % Plt Count 455 H (150-450) k/uL Neutrophils # 18.9 H (1.3-7.7) k/uL Lymphocytes # (1.0-4.8) k/uL APTT (22.0-30.0) sec D-Dimer (<0.60) mg/L FEU ABG pH (7.35-7.45) ABG pCO2 (35-45) mmHg ABG pO2 (83-108) mmHg ABG HCO3 (21-25) mmol/L ABG Total CO2 (19-24) mmol/L ABG O2 Saturation (94-97) % Potassium 5.4 H (3.5-5.1) mmol/L BUN 24 H (7-17) mg/dL Creatinine 1.10 H (0.52-1.04) mg/dL Glucose 233 H (74-99) mg/dL POC Glucose (mg/dL) (75-99) mg/dL Phosphorus (2.5-4.5) mg/dL Magnesium (1.6-2.3) mg/dL Total Bilirubin (0.2-1.3) mg/dL AST (14-36) U/L Total Creatine Kinase 25 L (30-135) U/L Total Protein (6.3-8.2) g/dL Albumin (3.5-5.0) g/dL Ur Leukocyte Esterase (Negative) Urine WBC (0-5) /hpf Urine Mucus (None) /hpf 03/16/18 03/16/18 03/16/18 Range/Units 13:54 14:10 15:39 WBC (3.8-10.6) k/uL RBC (3.80-5.40) m/uL Hgb (11.4-16.0) gm/dL Hct (34.0-46.0) % Plt Count (150-450) k/uL Neutrophils # (1.3-7.7) k/uL Lymphocytes # (1.0-4.8) k/uL APTT 20.9 L (22.0-30.0) sec D-Dimer 12.26 H (<0.60) mg/L FEU ABG pH 7.07 L* 7.16 L* (7.35-7.45) ABG pCO2 92 H* 70 H* (35-45) mmHg ABG pO2 129 H 301 H (83-108) mmHg ABG HCO3 27 H (21-25) mmol/L ABG Total CO2 30 H 27 H (19-24) mmol/L ABG O2 Saturation 99.5 H (94-97) % Potassium (3.5-5.1) mmol/L BUN (7-17) mg/dL Creatinine (0.52-1.04) mg/dL Glucose (74-99) mg/dL POC Glucose (mg/dL) (75-99) mg/dL Phosphorus (2.5-4.5) mg/dL Magnesium (1.6-2.3) mg/dL Total Bilirubin (0.2-1.3) mg/dL AST (14-36) U/L Total Creatine Kinase (30-135) U/L Total Protein (6.3-8.2) g/dL Albumin (3.5-5.0) g/dL Ur Leukocyte Esterase (Negative) Urine WBC (0-5) /hpf Urine Mucus (None) /hpf 03/16/18 03/16/18 03/17/18 Range/Units 17:11 21:15 00:23 WBC (3.8-10.6) k/uL RBC (3.80-5.40) m/uL Hgb (11.4-16.0) gm/dL Hct (34.0-46.0) % Plt Count (150-450) k/uL Neutrophils # (1.3-7.7) k/uL Lymphocytes # (1.0-4.8) k/uL APTT (22.0-30.0) sec D-Dimer (<0.60) mg/L FEU ABG pH (7.35-7.45) ABG pCO2 (35-45) mmHg ABG pO2 (83-108) mmHg ABG HCO3 (21-25) mmol/L ABG Total CO2 (19-24) mmol/L ABG O2 Saturation (94-97) % Potassium (3.5-5.1) mmol/L BUN (7-17) mg/dL Creatinine (0.52-1.04) mg/dL Glucose (74-99) mg/dL POC Glucose (mg/dL) 194 H 169 H 161 H (75-99) mg/dL Phosphorus (2.5-4.5) mg/dL Magnesium (1.6-2.3) mg/dL Total Bilirubin (0.2-1.3) mg/dL AST (14-36) U/L Total Creatine Kinase (30-135) U/L Total Protein (6.3-8.2) g/dL Albumin (3.5-5.0) g/dL Ur Leukocyte Esterase (Negative) Urine WBC (0-5) /hpf Urine Mucus (None) /hpf 03/17/18 03/17/18 03/17/18 Range/Units 03:55 03:55 05:29 WBC (3.8-10.6) k/uL RBC 3.28 L (3.80-5.40) m/uL Hgb 8.6 L D (11.4-16.0) gm/dL Hct 27.2 L (34.0-46.0) % Plt Count (150-450) k/uL Neutrophils # (1.3-7.7) k/uL Lymphocytes # 0.8 L (1.0-4.8) k/uL APTT (22.0-30.0) sec D-Dimer (<0.60) mg/L FEU ABG pH 7.34 L (7.35-7.45) ABG pCO2 48 H (35-45) mmHg ABG pO2 (83-108) mmHg ABG HCO3 26 H (21-25) mmol/L ABG Total CO2 27 H (19-24) mmol/L ABG O2 Saturation 98.0 H (94-97) % Potassium (3.5-5.1) mmol/L BUN 31 H (7-17) mg/dL Creatinine 1.30 H (0.52-1.04) mg/dL Glucose 137 H (74-99) mg/dL POC Glucose (mg/dL) (75-99) mg/dL Phosphorus 4.7 H (2.5-4.5) mg/dL Magnesium 1.5 L (1.6-2.3) mg/dL Total Bilirubin <0.1 L (0.2-1.3) mg/dL AST 13 L (14-36) U/L Total Creatine Kinase (30-135) U/L Total Protein 5.3 L (6.3-8.2) g/dL Albumin 3.2 L (3.5-5.0) g/dL Ur Leukocyte Esterase (Negative) Urine WBC (0-5) /hpf Urine Mucus (None) /hpf 03/17/18 03/17/18 Range/Units 06:33 06:50 WBC (3.8-10.6) k/uL RBC (3.80-5.40) m/uL Hgb (11.4-16.0) gm/dL Hct (34.0-46.0) % Plt Count (150-450) k/uL Neutrophils # (1.3-7.7) k/uL Lymphocytes # (1.0-4.8) k/uL APTT (22.0-30.0) sec D-Dimer (<0.60) mg/L FEU ABG pH (7.35-7.45) ABG pCO2 (35-45) mmHg ABG pO2 (83-108) mmHg ABG HCO3 (21-25) mmol/L ABG Total CO2 (19-24) mmol/L ABG O2 Saturation (94-97) % Potassium (3.5-5.1) mmol/L BUN (7-17) mg/dL Creatinine (0.52-1.04) mg/dL Glucose (74-99) mg/dL POC Glucose (mg/dL) 171 H (75-99) mg/dL Phosphorus (2.5-4.5) mg/dL Magnesium (1.6-2.3) mg/dL Total Bilirubin (0.2-1.3) mg/dL AST (14-36) U/L Total Creatine Kinase (30-135) U/L Total Protein (6.3-8.2) g/dL Albumin (3.5-5.0) g/dL Ur Leukocyte Esterase Moderate H (Negative) Urine WBC 20 H (0-5) /hpf Urine Mucus Rare H (None) /hpf Microbiology - Last 24 Hours (Table) 03/17/18 06:50 Urine Culture - Preliminary Urine,Catheterized 03/16/18 15:11 Gram Stain - Preliminary Sputum Sputum Culture - Preliminary Assessment and Plan Assessment: Acute hypoxic and hypercapnic respirator failure Acute COPD exacerbation Congestive heart failure suspect diastolic and systolic acute heart failure Community-acquired pneumonia Urinary tract infection Right upper lobe mass, being monitored and observed, patient declined aggressive intervention including biopsy Type 2 diabetes mellitus Hypertension hypertensive cardiovascular disease Dyslipidemia Osteoporosis Severe baseline COPD History of oral precancerous lesion which are being monitored and observed Plan: Weaning as tolerated patient is being placed on CPAP 5 pressure support of 5 with 40% oxygen blood gas on this setting spending weaning parameters have reviewed if arterial blood gas service stable then patient likely will be extubated Broad-spectrum antibiotics Breathing treatments Trial of steroids for now Patient could benefit from a low-dose furosemide Obtain echocardiogram Deep breathing exercises incentive spirometry once extubated DVT and peptic ulcer disease prophylaxis Further recommendations pending plan of care as per clinical response of the patient Critical care time spent 45 minutes Time with Patient: Greater than 30
[2018-03-17 10:57] LABS: ABG Base Excess 0.4 mmol/L; ABG HCO3 25 mmol/L (21-25); ABG Oxygen Saturation 98.3 % (94-97); ABG PCO2 42 mmHg (35-45); ABG PH 7.39 (7.35-7.45); ABG PO2 112 mmHg (83-108); ABG TCO2 27 mmol/L (19-24)
[2018-03-17] MEDS ORDERED: FUROSEMIDE 10 MG/ML 4 ML VIAL ONE (11:02)
[2018-03-17] MEDS ORDERED: CALCIUM CARBONATE 500 MG CHEWABLE PO SCH (12:00)
[2018-03-17 12:17] LABS: Glucose,Whole Blood 129 mg/dL (75-99)
[2018-03-17] MEDS ORDERED: FUROSEMIDE 10 MG/ML 2 ML VIAL IV STA (13:27)
--- NOTE | 2018-03-17 15:06 | P.HPIM ---
History of Present Illness H&P Date: 03/17/18 Chief Complaint: Shortness of breath This is a 87-year-old female with past medical history noted below significant for underlying COPD who presented to the emergency room with worsening shortness of breath. Patient said that she got up yesterday feeling short of breath. She usually sit down and relax but yesterday her shortness of breath was persistent. She wears oxygen 24 hours at home. She denies any chest pain. She was having more cough throughout the day as well. She was more concerned and asked her to bring her to the emergency room. In the emergency room , patient was found to be in acute hypercapnic respiratory failure. Patient was placed on BiPAP with minimal relief she was eventually intubated and mechanically ventilated. She was admitted to the intensive care unit. Her overall condition improved quickly. She was extubated today around known. She is currently awake and alert. She denies any significant shortness of breath. She is known to have an underlying lung mass involving the right upper lobe she did not want to pursue further testing or diagnostics. Review of Systems Review of system: 14 points review of systems were obtained and were negative except to what were mentioned in the HPI. Past Medical History Past Medical History: Cancer, COPD, Diabetes Mellitus, Eye Disorder, GERD/Reflux , Hyperlipidemia, Hypertension, Pneumonia Additional Past Medical History / Comment(s): oral cancer, osteoporosis History of Any Multi-Drug Resistant Organisms: None Reported Past Surgical History: Bladder Surgery, Hysterectomy, Pacemaker Additional Past Surgical History / Comment(s): AAA stent repair (01-04-18), oral biopsies-precancerous, bladder suspension Past Anesthesia/Blood Transfusion Reactions: No Reported Reaction Type of Cardiac Device: Permanent Pacemaker Device Placement Date:: 2001 Past Psychological History: Anxiety Smoking Status: Former smoker Past Alcohol Use History: None Reported Past Drug Use History: None Reported - Past Family History Mother Family Medical History: Cancer, Diabetes Mellitus Father Family Medical History: Cancer Medications and Allergies Home Medications Medication Instructions Recorded Confirmed Type Albuterol Nebulized [Ventolin 2.5 mg INHALATION RT-TID 01/02/18 03/16/18 History Nebulized] Albuterol Sulfate [Proair Hfa] 1 - 2 puff INHALATION RT-Q4H PRN 01/02/18 History Alendronate Sodium [Fosamax] 70 mg PO TH 01/02/18 03/16/18 History Aspirin 81 mg PO DAILY 01/02/18 03/16/18 History Budesonide 1 mg INHALATION RT-BID 01/02/18 03/16/18 History Calcium Carbonate [Calcium] 600 mg PO DAILY 01/02/18 03/16/18 History Ensure 1 can PO BID 01/02/18 03/16/18 History Lisinopril [Zestril] 2.5 mg PO DAILY 01/02/18 03/16/18 History Lovastatin [Mevacor] 20 mg PO DAILY 01/02/18 03/16/18 History Mometasone/Formoterol [Dulera 200 2 puff INHALATION RT-BID 01/02/18 03/16/18 History Mcg/5 Mcg Inhaler] NIFEdipine XL [Procardia Xl] 30 mg PO DAILY 01/02/18 03/16/18 History metFORMIN HCL [Glucophage] 1,000 mg PO [id number] 01/02/18 03/16/18 History Ipratropium Nebulized [Atrovent 0.5 mg INHALATION RT-Q6H 03/16/18 03/16/18 History Nebulized] Montelukast Sodium [Singulair] 10 mg PO DAILY 03/16/18 03/16/18 History Allergies Allergy/AdvReac Type Severity Reaction Status Date / Time latex Allergy Rash/Hives Verified 03/16/18 15:57 Penicillins Allergy Rash/Hives Verified 03/16/18 15:57 strawberry Allergy Rash/Hives Verified 03/16/18 15:57 Physical Exam Vitals: Vital Signs Temp Pulse Pulse Resp BP Pulse Ox 03/17/18 14:00 69 24 124/60 97 03/17/18 13:00 64 17 134/60 95 03/17/18 12:00 98.1 F 66 22 130/59 98 03/17/18 11:51 68 03/17/18 11:40 65 03/17/18 11:15 97 03/17/18 11:00 64 18 140/68 100 03/17/18 10:00 59 L 15 119/56 100 03/17/18 09:00 72 16 113/55 99 03/17/18 08:00 98.1 F 69 92 26 H 111/51 98 03/17/18 07:39 59 L 03/17/18 07:26 67 03/17/18 07:25 67 03/17/18 07:11 68 03/17/18 07:00 68 22 122/58 99 03/17/18 06:00 68 23 118/65 99 03/17/18 05:00 59 L 22 103/53 98 03/17/18 04:00 97.9 F 55 L 22 105/54 99 03/17/18 03:54 53 L 03/17/18 03:33 56 L 03/17/18 03:00 54 L 22 100/49 99 03/17/18 02:00 56 L 23 109/54 98 03/17/18 01:00 66 26 H 118/57 97 03/17/18 00:00 97.8 F 54 L 22 93/42 97 03/16/18 23:52 56 L 03/16/18 23:36 58 L 03/16/18 23:00 55 L 23 90/43 97 03/16/18 22:00 58 L 24 106/43 96 03/16/18 21:00 58 L 25 H 100/48 99 03/16/18 20:00 97.9 F 53 L 24 95/51 99 03/16/18 19:53 52 L 03/16/18 19:36 50 L 03/16/18 19:20 50 L 03/16/18 19:00 49 L 26 H 86/47 100 03/16/18 18:45 49 L 26 H 99/50 99 03/16/18 18:30 51 L 23 100/49 100 03/16/18 18:15 49 L 22 99/47 99 03/16/18 18:00 50 L 26 H 91/47 99 03/16/18 17:45 49 L 25 H 96/47 99 03/16/18 17:30 52 L 25 H 102/42 99 03/16/18 17:15 50 L 23 92/42 100 03/16/18 17:00 98.4 F 52 L 24 104/50 100 03/16/18 16:22 51 L 20 106/53 100 03/16/18 16:09 99/52 03/16/18 16:04 20 95/53 98 03/16/18 15:48 53 L 20 106/53 100 03/16/18 15:40 55 L 20 126/56 100 Intake and Output 05/27/18 05/28/18 05/28/18 22:59 06:59 14:59 Intake Total 326.571 521.9 546.070 Output Total 621 647 5555 Balance -633.429 -133.1 -603.930 Intake: IV 250 400 400 Sodium Chloride 0.9% 1, 250 400 400 000 ml @ 50 mls/hr IV . Q20H [facility] Rx#:[id number] Intake, IV Titration 76.571 121.9 146.070 Amount Magnesium Sulfate-D5w Pmx 100 1 gm In Dextrose/Water 1 100ml.bag @ 100 mls/hr IVPB Q1H [facility] Rx#: [id number] Propofol 1,000 mg In 13.105 Empty Bag 1 bag @ 10 MCG/ KG/MIN 3.97 mls/hr IV . Q24H [facility] Rx#:[id number] Propofol 1,000 mg In 63.466 121.9 46.070 Empty Bag 1 bag @ Titrate IV .Q0M [facility] Rx#: [id number] Output: Urine 012 619 6593 Uretheral ([place]) 225 Other: Voiding Method Indwelling Catheter Indwelling Catheter Indwelling Catheter Weight 66.22 kg 68.3 kg General: The patient is awake and alert, in no distress Eye: there is normal conjunctiva bilaterally. Neck: The neck is supple, there is no JVD. Cardiovascular: Normal S1-S2, no S3-S4, no murmurs. Respiratory: Lungs are diminished with no obvious wheezing Gastrointestinal: Abdomen is soft, nontender Musculoskeletal: There is no pedal edema. Neurological:. Speech is normal. Skin: Skin is warm and dry Results CBC & Chem 7: 03/17/18 03:55 03/17/18 03:55 Labs: Abnormal Lab Results - Last 24 Hours (Table) 03/16/18 03/16/18 03/16/18 Range/Units 15:39 17:11 21:15 RBC (3.80-5.40) m/uL Hgb (11.4-16.0) gm/dL Hct (34.0-46.0) % Lymphocytes # (1.0-4.8) k/uL ABG pH 7.16 L* (7.35-7.45) ABG pCO2 70 H* (35-45) mmHg ABG pO2 301 H (83-108) mmHg ABG HCO3 (21-25) mmol/L ABG Total CO2 27 H (19-24) mmol/L ABG O2 Saturation 99.5 H (94-97) % BUN (7-17) mg/dL Creatinine (0.52-1.04) mg/dL Glucose (74-99) mg/dL POC Glucose (mg/dL) 194 H 169 H (75-99) mg/dL Phosphorus (2.5-4.5) mg/dL Magnesium (1.6-2.3) mg/dL Total Bilirubin (0.2-1.3) mg/dL AST (14-36) U/L Total Protein (6.3-8.2) g/dL Albumin (3.5-5.0) g/dL Ur Leukocyte Esterase (Negative) Urine WBC (0-5) /hpf Urine Mucus (None) /hpf 03/17/18 03/17/18 03/17/18 Range/Units 00:23 03:55 03:55 RBC 3.28 L (3.80-5.40) m/uL Hgb 8.6 L D (11.4-16.0) gm/dL Hct 27.2 L (34.0-46.0) % Lymphocytes # 0.8 L (1.0-4.8) k/uL ABG pH (7.35-7.45) ABG pCO2 (35-45) mmHg ABG pO2 (83-108) mmHg ABG HCO3 (21-25) mmol/L ABG Total CO2 (19-24) mmol/L ABG O2 Saturation (94-97) % BUN 31 H (7-17) mg/dL Creatinine 1.30 H (0.52-1.04) mg/dL Glucose 137 H (74-99) mg/dL POC Glucose (mg/dL) 161 H (75-99) mg/dL Phosphorus 4.7 H (2.5-4.5) mg/dL Magnesium 1.5 L (1.6-2.3) mg/dL Total Bilirubin <0.1 L (0.2-1.3) mg/dL AST 13 L (14-36) U/L Total Protein 5.3 L (6.3-8.2) g/dL Albumin 3.2 L (3.5-5.0) g/dL Ur Leukocyte Esterase (Negative) Urine WBC (0-5) /hpf Urine Mucus (None) /hpf 03/17/18 03/17/18 03/17/18 Range/Units 05:29 06:33 06:50 RBC (3.80-5.40) m/uL Hgb (11.4-16.0) gm/dL Hct (34.0-46.0) % Lymphocytes # (1.0-4.8) k/uL ABG pH 7.34 L (7.35-7.45) ABG pCO2 48 H (35-45) mmHg ABG pO2 (83-108) mmHg ABG HCO3 26 H (21-25) mmol/L ABG Total CO2 27 H (19-24) mmol/L ABG O2 Saturation 98.0 H (94-97) % BUN (7-17) mg/dL Creatinine (0.52-1.04) mg/dL Glucose (74-99) mg/dL POC Glucose (mg/dL) 171 H (75-99) mg/dL Phosphorus (2.5-4.5) mg/dL Magnesium (1.6-2.3) mg/dL Total Bilirubin (0.2-1.3) mg/dL AST (14-36) U/L Total Protein (6.3-8.2) g/dL Albumin (3.5-5.0) g/dL Ur Leukocyte Esterase Moderate H (Negative) Urine WBC 20 H (0-5) /hpf Urine Mucus Rare H (None) /hpf 03/17/18 03/17/18 Range/Units 10:50 12:15 RBC (3.80-5.40) m/uL Hgb (11.4-16.0) gm/dL Hct (34.0-46.0) % Lymphocytes # (1.0-4.8) k/uL ABG pH (7.35-7.45) ABG pCO2 (35-45) mmHg ABG pO2 112 H (83-108) mmHg ABG HCO3 (21-25) mmol/L ABG Total CO2 27 H (19-24) mmol/L ABG O2 Saturation 98.3 H (94-97) % BUN (7-17) mg/dL Creatinine (0.52-1.04) mg/dL Glucose (74-99) mg/dL POC Glucose (mg/dL) 129 H (75-99) mg/dL Phosphorus (2.5-4.5) mg/dL Magnesium (1.6-2.3) mg/dL Total Bilirubin (0.2-1.3) mg/dL AST (14-36) U/L Total Protein (6.3-8.2) g/dL Albumin (3.5-5.0) g/dL Ur Leukocyte Esterase (Negative) Urine WBC (0-5) /hpf Urine Mucus (None) /hpf Microbiology - Last 24 Hours (Table) 03/17/18 06:50 Urine Culture - Preliminary Urine,Catheterized 03/16/18 15:11 Gram Stain - Preliminary Sputum Sputum Culture - Preliminary Thrombosis Risk Factor Assmnt - Choose All That Apply Any of the Below Risk Factors Present?: Yes Each Factor Represents 1 point: Abnormal pulmonary function (COPD), Swollen legs (current) Other Risk Factors: Yes Each Risk Factor Represents 2 Points: Malignancy Each Risk Factor Represents 3 Points: Age 75 years or older Other congenital or acquired thrombophilia - If yes, enter type in comment: No Thrombosis Risk Factor Assessment Total Risk Factor Score: 7 Thrombosis Risk Factor Assessment Level: High Risk Assessment and Plan Assessment: 1. Acute hypercapnic respiratory failure requiring intubation and mechanical ventilation. Patient was extubated successfully today around known. 2. Acute on chronic hypoxic respiratory failure on home O2 3. Acute COPD exacerbation maintained on bronchodilators and steroid 4. Acute heart failure exacerbation, awaiting echocardiogram. Improved with IV diuresis. 5. Essential hypertension: Blood pressure within acceptable range 6. Right upper lobe mass with lymphadenopathy as a concerns for possible underlying malignancy. Patient is not interested in pursuing any further workup or diagnostic 7. CODE STATUS, patient is DO NOT RESUSCITATE/DO NOT INTUBATE Today, I reviewed her medication list and lab work results. Continue bronchodilators and steroids. Echocardiogram ordered and pending. Wean off O2 as tolerated for O2 sats greater than 90%. Repeat lab work in the morning. Continue ICU care. Appreciate sap portal consultant's recommendations. Today, I discussed CODE STATUS with patient. She is able to make her own decisions. She informed me that she is not interested in any sort of resuscitation including cardiac or respiratory. We will check his CODE STATUS to DO NOT RESUSCITATE/DO NOT INTUBATE.
[2018-03-17] MEDS: NIFEdipine XL 30 MG TAB.ER.24 PO SCH (15:43)
[2018-03-17 17:10] LABS: Glucose,Whole Blood 145 mg/dL (75-99)
[2018-03-17] MEDS: DOXYCYCLINE 50 MG CAP PO SCH (19:59)
[2018-03-17 20:00] LABS: Glucose,Whole Blood 182 mg/dL (75-99)
[2018-03-17] MEDS: FUROSEMIDE 10 MG/ML 2 ML VIAL IV SCH (20:00)
--- NOTE | 2018-03-17 21:15 | CONS ---
CONSULTATION This is an 87-year-old lady who sees Dr. Núñez in the outpatient setting. She also has significant oxygen-dependent COPD, type 2 diabetes, hypertension, and also an abdominal aortic aneurysm for which she had a stent graft performed about 2 months ago[address] She sees Dr. Sanket Tee from a pulmonary standpoint. She came to the emergency room yesterday in the afternoon with complaints of increasing shortness of breath and was very obtunded. She was tried on a BiPAP, but did not tolerate. Later on intubated and after she improved, she was extubated this morning. She is off the vent. She is comfortable, breathing easier. Denies chest pain. At no time did she have any shortness of breath. BNP was elevated and I am asked to see her for possibility of any underlying congestive heart failure. She is feeling much better at the time of my evaluation, does not appear to be any distress, breathing easier. PAST MEDICAL HISTORY: 1. History of COPD. 2. History of some hyperlipidemia. 3. Hysterectomy. 4. Bladder surgery. 5. She had also aortic stent graft for abdominal aortic aneurysm performed a couple of months ago. SOCIAL HISTORY: Patient quit smoking maybe about a year or so ago or less. Does not consume alcohol on a regular basis. MEDICATIONS: Home medications include Zestril 2.5 mg daily, Mevacor 20 mg daily, Procardia 30 mg daily, metformin and she takes Singulair and also some inhalers. ALLERGIES: She is allergic to PENICILLIN. EXAMINATION: Blood pressure is 134/60, pulse rate is 68 per minute, regular. HEENT: Unremarkable. Fundus was not examined by me. NECK: Supple. There is JVD of 1 cm. No carotid bruit. Heart exam reveals S1, S2 heard normally. There is a short systolic murmur, but second heart sound is preserved. Lungs reveal bilateral diminished air entry. Abdomen is soft, nontender. Pulsatile abdomen is noted. Lower extremities reveal diminished pulses. Central nervous system is grossly within normal limits without focal deficits. EKG revealed ventricular paced rhythm with atrial sensing. A chest CT angiography was also performed and there is no evidence of any pulmonary embolism. There is some pneumonitis in the right upper lobe. IMPRESSION: 1. Acute respiratory failure with CO2 retention, which has resolved. 2. Possible concomitant mild congestive heart failure, which could have been worsened in the setting of acidosis with an elevated BNP. 3. History of abdominal aortic aneurysm, status post stent grafting. RECOMMENDATIONS: I am recommending that we resume her home medications. Check an echocardiogram tomorrow morning and based on clinical course we will make further recommendations. No aggressive intervention is advised. Thank you very much for the consult. THOR / REMBERTO: [id number] /
[2018-03-18] MEDS: IPRATROPIUM-ALBUTEROL 3 ML NEB INHALATION SCH ×6 (01:30→20:16)
[2018-03-18 04:51] LABS: Basophils % (A) 0 %; Eosinophils # (A) 0.1 k/uL (0-0.7); Eosinophils % (A) 1 %; HCT 29.3 % (34.0-46.0); HGB 9.1 gm/dL (11.4-16.0); Hypochromasia Slight; Lymphocytes # (A) 1.5 k/uL (1.0-4.8); Lymphocytes % (A) 16 %; MCH 25.5 pg (25.0-35.0); MCHC 30.9 g/dL (31.0-37.0); MCV 82.6 fL (80.0-100.0); Mean Platelet Volume 7.5; Monocytes # (A) 0.6 k/uL (0-1.0); Monocytes % (A) 6 %; Neutrophils # (A) 7.1 k/uL (1.3-7.7); Neutrophils % (A) 76 %; Platelet Count 250 k/uL (150-450); RBC 3.55 m/uL (3.80-5.40); RDW 15.7 % (11.5-15.5); WBC 9.4 k/uL (3.8-10.6)
[2018-03-18 05:00] LABS: Albumin 3.3 g/dL (3.5-5.0); Calcium 8.7 mg/dL (8.4-10.2); Magnesium 1.9 mg/dL (1.6-2.3); Phosphorus 3.4 mg/dL (2.5-4.5); Potassium 3.8 mmol/L (3.5-5.1); Total Bilirubin 0.2 mg/dL (0.2-1.3); Total Protein 5.6 g/dL (6.3-8.2)
[2018-03-18] MEDS ORDERED: POTASSIUM CHLORIDE ER 20 MEQ TAB.ER PO SCH (07:00)
[2018-03-18] MEDS: FORMOTEROL FUMARATE 20 MCG/2 ML NEBU INHALATION SCH ×2 (07:25→20:16)
[2018-03-18] MEDS: BUDESONIDE 1 MG/2 ML NEBU INHALATION SCH (07:25)
[2018-03-18] MEDS ORDERED: metFORMIN 500 MG TAB PO SCH (07:30)
[2018-03-18 07:40] LABS: Glucose,Whole Blood 124 mg/dL (75-99)
--- NOTE | 2018-03-18 08:30 | XR ---
EXAMINATION TYPE: XR chest 1V DATE OF EXAM: 03/18/2018 COMPARISON: Prior chest 03/17/2018 HISTORY: Pneumonia TECHNIQUE: Single frontal view of the chest is obtained. FINDINGS: There is been interval removal of endotracheal and NG tube. Generator is in left pectoral region, leads are present in the right atrium and ventricle. Heart remains enlarged. No evident pneum othorax or sizable effusion. Interstitium is prominent. Patchy basilar density is noted. IMPRESSION: Findings may represent pulmonary venous hypertension and interstitial edema rather than pneumonia, follow-up PA and lateral chest x-ray recommended.
[2018-03-18] MEDS ORDERED: predniSONE 20 MG TAB PO SCH (09:00)
[2018-03-18] MEDS: INSULIN ASPART 100 UNIT/ML 1 ML 10 ML VIAL SQ SCH ×4 (09:10→21:01)
[2018-03-18] MEDS: FUROSEMIDE 10 MG/ML 2 ML VIAL IV SCH (09:21)
[2018-03-18] MEDS: NIFEdipine XL 30 MG TAB.ER.24 PO SCH (09:21)
[2018-03-18] MEDS: ENOXAPARIN 40 MG/0.4 ML SYRINGE SQ SCH (09:21)
[2018-03-18] MEDS: PANTOPRAZOLE 40 MG/10 ML VIAL IVP SCH (09:23)
[2018-03-18] MEDS: DOXYCYCLINE 50 MG CAP PO SCH ×2 (09:23→21:00)
[2018-03-18] MEDS: MAGNESIUM SULFATE-D5W PMX 1 GM in DEXTROSE/WATER 1 100ML.BAG IVPB SCH ×2 (09:24→12:09)
[2018-03-18] MEDS: TIMOLOL 0.5% OPHTH DROPS 5 ML BTL BOTH EYES SCH ×2 (09:24→21:00)
[2018-03-18 11:10] LABS: Hemoglobin A1C 5.8 % (4.0-6.0)
--- NOTE | 2018-03-18 11:48 | P.PN ---
Subjective Progress Note Date: 03/18/18 Patient is doing well today. She denies shortness of breath. She is on 2 L of oxygen. Objective - Vital Signs Vital signs: Vital Signs Temp 98.9 F 03/18/18 04:00 Pulse 74 03/18/18 11:00 Resp 24 03/18/18 11:00 BP 154/69 03/18/18 11:00 Pulse Ox 95 03/18/18 11:00 Intake & Output 03/17/18 03/18/18 03/18/18 18:59 06:59 18:59 Intake Total 936.070 700 50 Output Total 1750 2475 150 Balance -813.930 -1775 -100 Weight 61.5 kg Intake: IV 550 600 50 Sodium Chloride 0.9% 1, 550 600 50 000 ml @ 50 mls/hr IV . Q20H [facility] Rx#:[id number] Intake, IV Titration 146.070 Amount Magnesium Sulfate-D5w Pmx 100 1 gm In Dextrose/Water 1 100ml.bag @ 100 mls/hr IVPB Q1H [facility] Rx#: [id number] Propofol 1,000 mg In 46.070 Empty Bag 1 bag @ Titrate IV .Q0M [facility] Rx#: [id number] Oral 240 100 Output: Urine 1750 2475 150 Other: Voiding Method Indwelling Catheter Indwelling Catheter - Exam General: The patient is awake and alert, in no distress Eye: there is normal conjunctiva bilaterally. Neck: The neck is supple, there is no JVD. Cardiovascular: Normal S1-S2, no S3-S4, no murmurs. Respiratory: Lungs clear to auscultation bilaterally Gastrointestinal: Abdomen is soft, nontender Musculoskeletal: There is no pedal edema. Neurological:. Speech is normal. Skin: Skin is warm and dry - Labs CBC & Chem 7: 03/18/18 04:30 03/18/18 04:30 Labs: Abnormal Lab Results - Last 24 Hours (Table) 03/17/18 03/17/18 03/17/18 Range/Units 12:15 17:09 19:58 RBC (3.80-5.40) m/uL Hgb (11.4-16.0) gm/dL Hct (34.0-46.0) % MCHC (31.0-37.0) g/dL RDW (11.5-15.5) % Carbon Dioxide (22-30) mmol/L BUN (7-17) mg/dL Creatinine (0.52-1.04) mg/dL Glucose (74-99) mg/dL POC Glucose (mg/dL) 129 H 145 H 182 H (75-99) mg/dL Total Protein (6.3-8.2) g/dL Albumin (3.5-5.0) g/dL 03/18/18 03/18/18 03/18/18 Range/Units 04:30 04:30 07:38 RBC 3.55 L (3.80-5.40) m/uL Hgb 9.1 L (11.4-16.0) gm/dL Hct 29.3 L (34.0-46.0) % MCHC 30.9 L (31.0-37.0) g/dL RDW 15.7 H (11.5-15.5) % Carbon Dioxide 31 H (22-30) mmol/L BUN 30 H (7-17) mg/dL Creatinine 1.38 H (0.52-1.04) mg/dL Glucose 104 H (74-99) mg/dL POC Glucose (mg/dL) 124 H (75-99) mg/dL Total Protein 5.6 L (6.3-8.2) g/dL Albumin 3.3 L (3.5-5.0) g/dL Microbiology - Last 24 Hours (Table) 03/16/18 15:11 Gram Stain - Final Sputum Sputum Culture - Final 03/16/18 15:35 Blood Culture - Preliminary Blood No Growth after 24 hours 03/16/18 14:19 Blood Culture - Preliminary Blood No Growth after 24 hours 03/17/18 06:50 Urine Culture - Preliminary Urine,Catheterized Assessment and Plan Assessment: 1. Acute hypercapnic respiratory failure requiring intubation and mechanical ventilation. Patient was extubated successfully today around known. 2. Acute on chronic hypoxic respiratory failure on home O2 3. Acute COPD exacerbation maintained on bronchodilators and steroid 4. Acute heart failure exacerbation, awaiting echocardiogram. Improved with IV diuresis. 5. Essential hypertension: Blood pressure within acceptable range 6. Right upper lobe mass with lymphadenopathy as a concerns for possible underlying malignancy. Patient is not interested in pursuing any further workup or diagnostic 7. CODE STATUS, patient is DO NOT RESUSCITATE/DO NOT INTUBATE Today, I reviewed her medication list and lab work results. Continue bronchodilators and steroids. Echocardiogram ordered and pending. Wean off O2 as tolerated for O2 sats greater than 90%. Repeat lab work in the morning. Appreciate loans consultant's recommendations. Transfer out of ICU to account general manager unit
[2018-03-18 12:05] LABS: Glucose,Whole Blood 180 mg/dL (75-99)
--- NOTE | 2018-03-18 12:23 | P.PN ---
Subjective Acute COPD exacerbation, acute on chronic hypoxic and hypercapnic history failure, acute exacerbation of CHF, bilateral pleural effusion, community- acquired pneumonia, history of right upper lobe lung mass, 03/17/2018, 87-year-old female with extensive history of smoking and nicotine use also has a history of the ill-defined lung mass in the right upper lobe found about 3 months ago patient refused aggressive intervention including biopsy patient is currently being evaluated with radiographic studies, also has a oral lesion by history with multiple biopsies revealed precancerous which is also being monitor observe, data predominantly obtained from the patient's as well as 2 daughters present at bedside for last 2 weeks patient has not been feeling very well with dyspnea on exertion which progressively got worse intermittent nonproductive dry cough is present as well with those problem patient presented into the emergency department, on day of admission patient got extremely short of breath in the emergency department was not able to talk on arrival due to severe difficulty in breathing was intubated for airway protection at the same time patient was unresponsive as well. Patient was placed on assist control mode with rate of 14, tidal volume of 350, and 100 % oxygen, with PEEP of 5. Put patient on CPAP of 5 and pressure support of 5 weaning parameters reviewed arterial blood gas currently pending patient is off of sedation arousable opens eyes follow simple commands radiographic studies laboratory data reviewed, computed tomography scan of the chest reviewed as well which revealed right upper lobe ill-defined mass along with bilateral pleural effusions and interstitial edema findings are highly suggestive of congestive heart failure however occult pneumonia cannot be excluded, currently patient had treated with broad-spectrum antibiotics in the emergency department now currently only on bronchodilators with DVT and peptic ulcer disease prophylaxis I urine culture is negative sputum is positive for gram-positive cocci with moderate polymorph leukocytes urine, analysis positive for leukocyte esterase 03/18/2018: Patient seen and examined in the ICU with family and nursing at bedside. The patient states she is feeling much better. She is currently on 2 L nasal cannula. She denies shortness of breath, cough, fevers, chills. She has been hemodynamically stable. Her respiratory status appears to be back at baseline. Objective - Vital Signs Vital signs: Vital Signs Temp 98.9 F 03/18/18 04:00 Pulse 77 03/18/18 12:14 Resp 31 H 03/18/18 12:00 BP 154/69 03/18/18 12:00 Pulse Ox 98 03/18/18 12:00 Intake & Output 03/17/18 03/18/18 03/18/18 18:59 06:59 18:59 Intake Total 936.070 700 50 Output Total 1750 1725 1285 Balance -813.930 -2136 -1234 Weight 61.5 kg Intake: IV 550 600 50 Sodium Chloride 0.9% 1, 550 600 50 000 ml @ 50 mls/hr IV . Q20H [facility] Rx#:[id number] Intake, IV Titration 146.070 Amount Magnesium Sulfate-D5w Pmx 100 1 gm In Dextrose/Water 1 100ml.bag @ 100 mls/hr IVPB Q1H [facility] Rx#: [id number] Propofol 1,000 mg In 46.070 Empty Bag 1 bag @ Titrate IV .Q0M [facility] Rx#: [id number] Oral 240 100 Output: Urine 1750 2705 1285 Other: Voiding Method Indwelling Catheter Indwelling Catheter - Exam Gen.: Patient is alert and oriented 3, no acute distress Cardiovascular: Regular rate and rhythm, S1/S2 Lungs: Diminished breath sounds bilaterally Abdomen: Soft nontender nondistended positive bowel sounds Extremities: No edema - Labs CBC & Chem 7: 03/18/18 04:30 03/18/18 04:30 Labs: Abnormal Lab Results - Last 24 Hours (Table) 03/17/18 03/17/18 03/18/18 Range/Units 17:09 19:58 04:30 RBC 3.55 L (3.80-5.40) m/uL Hgb 9.1 L (11.4-16.0) gm/dL Hct 29.3 L (34.0-46.0) % MCHC 30.9 L (31.0-37.0) g/dL RDW 15.7 H (11.5-15.5) % Carbon Dioxide (22-30) mmol/L BUN (7-17) mg/dL Creatinine (0.52-1.04) mg/dL Glucose (74-99) mg/dL POC Glucose (mg/dL) 145 H 182 H (75-99) mg/dL Total Protein (6.3-8.2) g/dL Albumin (3.5-5.0) g/dL 03/18/18 03/18/18 03/18/18 Range/Units 04:30 07:38 12:03 RBC (3.80-5.40) m/uL Hgb (11.4-16.0) gm/dL Hct (34.0-46.0) % MCHC (31.0-37.0) g/dL RDW (11.5-15.5) % Carbon Dioxide 31 H (22-30) mmol/L BUN 30 H (7-17) mg/dL Creatinine 1.38 H (0.52-1.04) mg/dL Glucose 104 H (74-99) mg/dL POC Glucose (mg/dL) 124 H 180 H (75-99) mg/dL Total Protein 5.6 L (6.3-8.2) g/dL Albumin 3.3 L (3.5-5.0) g/dL Microbiology - Last 24 Hours (Table) 03/16/18 15:11 Gram Stain - Final Sputum Sputum Culture - Final 03/16/18 15:35 Blood Culture - Preliminary Blood No Growth after 24 hours 03/16/18 14:19 Blood Culture - Preliminary Blood No Growth after 24 hours 03/17/18 06:50 Urine Culture - Preliminary Urine,Catheterized Assessment and Plan Assessment: Acute hypoxic and hypercapnic respirator failure, s/p mechanical ventilation Acute COPD exacerbation Congestive heart failure suspect diastolic and systolic acute heart failure Community-acquired pneumonia Urinary tract infection Right upper lobe mass, being monitored and observed, patient declined aggressive intervention including biopsy Type 2 diabetes mellitus Hypertension hypertensive cardiovascular disease Dyslipidemia Osteoporosis Severe baseline COPD History of oral precancerous lesion which are being monitored and observed Plan: O2 to maintain saturation greater than or equal to 90% Broad-spectrum antibiotics Duo nebs and Pulmicort/Perforomist Steroid taper Deep breathing exercises incentive spirometry DVT and peptic ulcer disease prophylaxis Okay to transfer out of the ICU today Consult PT and OT
--- NOTE | 2018-03-18 13:04 | PN ---
PROGRESS NOTE Mrs Loredo is an 87-year-old lady who sees Dr. Chinchilla in the outpatient setting. She presented yesterday with respiratory failure. This morning she is doing well. She has an underlying permanent pacemaker. She has what seems to be a basically a sinus rhythm with occasional paced beats. She is hemodynamically stable, breathing well denies any chest discomfort. She has history of aortic aneurysm stent grafting with abdominal aortic aneurysm performed a couple of months ago. She also has what seems to be a fairly well preserved ejection fraction by history and a negative stress test in 2013. This morning she feels well. Denies chest pain. She is feeling better. Has no palpitations. Rhythm is sinus. Hemodynamically, stable. Physical exam revealed vital signs are stable S1, S2 with a short systolic murmur is noted. Lungs reveal diminished air entry bilaterally. Abdomen and lower extremity exam is unchanged. From a cardiac standpoint, she is quite stable. No further intervention is necessary and I am awaiting the results of an echocardiogram that was performed early this morning. We will continue all her current medications and she can be moved to telemetry whenever it is okay with Dr. Mclain. THOR / IJN: [id number] /
--- NOTE | 2018-03-18 13:47 | P.PN ---
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, acute exacerbation of CHF, bilateral pleural effusion, community- acquired pneumonia, history of right upper lobe lung mass, 03/18/2018, patient seen and evaluated examined during the rounds she in the ICU patient has been 6 revealed and extubated, care plan discussed with the patient and son present at bedside at length, patient is still have a Monterroso's catheter for now it's been For a incontinence related issues and urine output monitoring, cardiovascular services has been consulted as well for presumed congestive heart failure and echocardiogram has been performed results are pending patient remains on broad-spectrum antibiotics breathing treatments will hold his steroids, if patient remains stable likely will be discharged out of the ICU and to be followed by primary motion graphics designer Dr. BRUNO whyte 03/17/2018, 87-year-old female with extensive history of smoking and nicotine use also has a history of the ill-defined lung mass in the right upper lobe found about 3 months ago patient refused aggressive intervention including biopsy patient is currently being evaluated with radiographic studies, also has a oral lesion by history with multiple biopsies revealed precancerous which is also being monitor observe, data predominantly obtained from the patient's as well as 2 daughters present at bedside for last 2 weeks patient has not been feeling very well with dyspnea on exertion which progressively got worse intermittent nonproductive dry cough is present as well with those problem patient presented into the emergency department, on day of admission patient got extremely short of breath in the emergency department was not able to talk on arrival due to severe difficulty in breathing was intubated for airway protection at the same time patient was unresponsive as well. Patient was placed on assist control mode with rate of 14, tidal volume of 350, and 100 % oxygen, with PEEP of 5. Put patient on CPAP of 5 and pressure support of 5 weaning parameters reviewed arterial blood gas currently pending patient is off of sedation arousable opens eyes follow simple commands radiographic studies laboratory data reviewed, computed tomography scan of the chest reviewed as well which revealed right upper lobe ill-defined mass along with bilateral pleural effusions and interstitial edema findings are highly suggestive of congestive heart failure however occult pneumonia cannot be excluded, currently patient had treated with broad-spectrum antibiotics in the emergency department now currently only on bronchodilators with DVT and peptic ulcer disease prophylaxis I urine culture is negative sputum is positive for gram-positive cocci with moderate polymorph leukocytes urine, analysis positive for leukocyte esterase Objective - Vital Signs Vital signs: Vital Signs Temp 98.9 F 03/18/18 04:00 Pulse 78 03/18/18 12:23 Resp 31 H 03/18/18 12:00 BP 154/69 03/18/18 12:00 Pulse Ox 98 03/18/18 12:00 Intake & Output 03/17/18 03/18/18 03/18/18 18:59 06:59 18:59 Intake Total 936.070 700 50 Output Total 1750 2475 1485 Balance -813.930 -6465 -2757 Weight 61.5 kg Intake: IV 550 600 50 Sodium Chloride 0.9% 1, 550 600 50 000 ml @ 50 mls/hr IV . Q20H STA Rx#:[id number] Intake, IV Titration 146.070 Amount Magnesium Sulfate-D5w Pmx 100 1 gm In Dextrose/Water 1 100ml.bag @ 100 mls/hr IVPB Q1H JACKY Rx#: [id number] Propofol 1,000 mg In 46.070 Empty Bag 1 bag @ Titrate IV .Q0M JACKY Rx#: [id number] Oral 240 100 Output: Urine 1750 2475 1485 Other: Voiding Method Indwelling Catheter Indwelling Catheter - Exam No acute distress, awake and alert denies any specific complaints HEENT examination is grossly unremarkable. Mucous membranes are moist. Neck supple. Full range of motion. No adenopathy thyromegaly or neck vein distention. Cardiovascular examination reveals regular rhythm rate. S1-S2 normal. No S3 or S4. No discernible murmur noted. Lungs reveal diffuse bilateral rhonchi and crackles. Breath sounds are equal bilaterally. Abdomen soft with bowel sounds. No masses or tenderness. Extremities are intact. No cyanosis clubbing or edema. Skin is without rash or lesion. Neurologic examination awake and alert no focal neurological deficit - Labs CBC & Chem 7: 03/18/18 04:30 03/18/18 04:30 Labs: Abnormal Lab Results - Last 24 Hours (Table) 03/17/18 03/17/18 03/18/18 Range/Units 17:09 19:58 04:30 RBC 3.55 L (3.80-5.40) m/uL Hgb 9.1 L (11.4-16.0) gm/dL Hct 29.3 L (34.0-46.0) % MCHC 30.9 L (31.0-37.0) g/dL RDW 15.7 H (11.5-15.5) % Carbon Dioxide (22-30) mmol/L BUN (7-17) mg/dL Creatinine (0.52-1.04) mg/dL Glucose (74-99) mg/dL POC Glucose (mg/dL) 145 H 182 H (75-99) mg/dL Total Protein (6.3-8.2) g/dL Albumin (3.5-5.0) g/dL 03/18/18 03/18/18 03/18/18 Range/Units 04:30 07:38 12:03 RBC (3.80-5.40) m/uL Hgb (11.4-16.0) gm/dL Hct (34.0-46.0) % MCHC (31.0-37.0) g/dL RDW (11.5-15.5) % Carbon Dioxide 31 H (22-30) mmol/L BUN 30 H (7-17) mg/dL Creatinine 1.38 H (0.52-1.04) mg/dL Glucose 104 H (74-99) mg/dL POC Glucose (mg/dL) 124 H 180 H (75-99) mg/dL Total Protein 5.6 L (6.3-8.2) g/dL Albumin 3.3 L (3.5-5.0) g/dL Microbiology - Last 24 Hours (Table) 03/16/18 15:11 Gram Stain - Final Sputum Sputum Culture - Final 03/16/18 15:35 Blood Culture - Preliminary Blood No Growth after 24 hours 03/16/18 14:19 Blood Culture - Preliminary Blood No Growth after 24 hours 03/17/18 06:50 Urine Culture - Preliminary Urine,Catheterized Assessment and Plan Assessment: Acute hypoxic and hypercapnic respirator failure Acute COPD exacerbation bilateral pleural effusion Congestive heart failure suspect diastolic and systolic acute heart failure Community-acquired pneumonia Urinary tract infection Right upper lobe mass, being monitored and observed, patient declined aggressive intervention including biopsy Type 2 diabetes mellitus Hypertension hypertensive cardiovascular disease Dyslipidemia Osteoporosis Severe baseline COPD History of oral precancerous lesion which are being monitored and observed Plan: patient has been successfully weaned and extubated breathing comfortably on supplemental oxygen awaiting echocardiogram results and Broad-spectrum antibiotics Breathing treatments Trial of steroids for now Patient could benefit from a low-dose furosemide Obtain echocardiogram Deep breathing exercises incentive spirometry once extubated DVT and peptic ulcer disease prophylaxis Further recommendations pending plan of care as per clinical response of the patient patient can be moved out of the ICU follow with primary motion graphics designer Dr. CARR ready Time with Patient: Greater than 30
--- NOTE | 2018-03-18 15:54 | ECHOF ---
Referral Reason:pulmnary hypertension, chf, pleural effusion MEASUREMENTS -------- HEIGHT: 165.1 cm WEIGHT: 68.0 kg BP: 154/69 RVIDd: 2.0 cm (< 3.3) IVSd: 1.0 cm (0.6 - 1.1) LVIDd: 6.0 cm (3.9 - 5.3) LVPWd: 1.2 cm (0.6 - 1.1) IVSs: 1.9 cm LVIDs: 3.8 cm LVPWs: 1.7 cm LAESV Index (A-L): 20.62 ml/m Ao Diam: 3.8 cm (2.0 - 3.7) AV Cusp: 1.7 cm (1.5 - 2.6) LA Diam: 2.9 cm (2.7 - 3.8) EPSS: 1.1 cm MV E Derick: 0.70 m/s MV DecT: 227 ms MV A Derick: 1.03 m/s MV E/A Ratio: 0.68 RAP: 5.00 mmHg RVSP: 16.93 mmHg MV EF SLOPE: 37.87 mm/s (70 - 150) MV EXCURSION: 1.44 cm (> 18.000) FINDINGS -------- BBB This was a technically adequate study. The left ventricle is moderately dilated. There is borderline concentric left ventricular hypertrop hy. Overall left ventricular systolic function is normal with, an EF between 55 - 60 %. The right ventricle is normal in size and function. Normal LA size by volume 22+/-6 ml/m2. The right atrium is normal in size. There is mild aortic valve sclerosis. There is no evidence of aortic regurgitation. There is no e vidence of aortic stenosis. The mitral valve leaflets are mildly thickened. Mild mitral annular calcification present. Modera te mitral regurgitation is present. Trace tricuspid regurgitation present. Right ventricular systolic pressure is normal at < 35 mmHg. There is no evidence of pulmonary hypertension. The pulmonic valve was not well visualized. The aortic root size is normal. Normal inferior vena cava with normal inspiratory collapse consistent with estimated right atrial pre ssure of 5 mmHg. There is no pericardial effusion. Large Pleural Effusion. CONCLUSIONS -------- 1. BBB 2. This was a technically adequate study. 3. The left ventricle is moderately dilated. 4. There is borderline concentric left ventricular hypertrophy. 5. Overall left ventricular systolic function is normal with, an EF between 55 - 60 %. 6. Normal LA size by volume 22+/-6 ml/m2. 7. There is mild aortic valve sclerosis. 8. The mitral valve leaflets are mildly thickened. 9. Mild mitral annular calcification present. 10. Moderate mitral regurgitation is present. 11. Trace tricuspid regurgitation present. 12. Right ventricular systolic pressure is normal at < 35 mmHg. 13. There is no evidence of pulmonary hypertension. 14. The pulmonic valve was not well visualized. 15. The aortic root size is normal. 16. There is no pericardial effusion. 17. Large Pleural Effusion. WARP PLACER: Cesar Hamilton RDCS
[2018-03-18 16:58] LABS: Glucose,Whole Blood 202 mg/dL (75-99)
[2018-03-18 20:08] LABS: Glucose,Whole Blood 215 mg/dL (75-99)
[2018-03-18] MEDS: BUDESONIDE 0.5 MG/2 ML NEBU INHALATION SCH (20:17)
[2018-03-18] MEDS ORDERED: LISINOPRIL 2.5 MG TAB PO SCH (21:00)
[2018-03-18] MEDS ORDERED: LATANOPROST 0.005% OPHTH DROPS 2.5 ML BTL BOTH EYES SCH (21:00)
[2018-03-19 05:28] VITALS: BP 113/57; RESP 16; TEMP 97.8
[2018-03-19 06:42] LABS: Glucose,Whole Blood 139 mg/dL (75-99)
[2018-03-19] MEDS: FORMOTEROL FUMARATE 20 MCG/2 ML NEBU INHALATION SCH (07:39)
[2018-03-19] MEDS: BUDESONIDE 0.5 MG/2 ML NEBU INHALATION SCH (07:39)
[2018-03-19] MEDS: IPRATROPIUM-ALBUTEROL 3 ML NEB INHALATION SCH ×3 (07:40→14:59)
[2018-03-19] MEDS: INSULIN ASPART 100 UNIT/ML 1 ML 10 ML VIAL SQ SCH ×2 (07:44→12:38)
[2018-03-19] MEDS: NIFEdipine XL 30 MG TAB.ER.24 PO SCH (07:44)
[2018-03-19] MEDS: DOXYCYCLINE 50 MG CAP PO SCH (07:44)
[2018-03-19] MEDS: TIMOLOL 0.5% OPHTH DROPS 5 ML BTL BOTH EYES SCH (07:45)
[2018-03-19] MEDS: PANTOPRAZOLE 40 MG/10 ML VIAL IVP SCH (07:45)
[2018-03-19] MEDS: ENOXAPARIN 40 MG/0.4 ML SYRINGE SQ SCH (07:45)
--- NOTE | 2018-03-19 07:49 | XR ---
EXAMINATION TYPE: XR chest 2V DATE OF EXAM: 03/19/2018 COMPARISON: Prior chest x-ray 03/18/2018 HISTORY: Congestive heart failure, shortness of breath and COPD TECHNIQUE: Frontal and lateral views of the chest are obtained. FINDINGS: Question some minimal patchy density in the right upper lobe, lung bases, there may be par tly of the left gastric angle. Cardiac mediastinal silhouette, pulmonary vascularity and janet are sta ble. There are overlying cardiac leads. Pacemaker is unchanged. No pneumothorax. Aortic stent graft i s present. Interstitium is increased. Prominent lung volumes compatible with underlying COPD noted. IMPRESSION: Correlate to exclude pulmonary venous hypertension and interstitial edema in a patient w ith pre-existing COPD, there may be small effusion on the left. Possible airspace disease right upper lobe, follow-up recommended.
[2018-03-19 08:17] LABS: Basophils % (A) 0 %; Eosinophils # (A) 0.3 k/uL (0-0.7); Eosinophils % (A) 2 %; HCT 35.8 % (34.0-46.0); HGB 11.1 gm/dL (11.4-16.0); Hypochromasia Moderate; Lymphocytes # (A) 1.6 k/uL (1.0-4.8); Lymphocytes % (A) 14 %; MCH 26.2 pg (25.0-35.0); MCHC 31.1 g/dL (31.0-37.0); MCV 84.3 fL (80.0-100.0); Mean Platelet Volume 7.7; Monocytes # (A) 0.7 k/uL (0-1.0); Monocytes % (A) 7 %; Neutrophils # (A) 8.6 k/uL (1.3-7.7); Neutrophils % (A) 76 %; Platelet Count 327 k/uL (150-450); RBC 4.25 m/uL (3.80-5.40); RDW 15.4 % (11.5-15.5); WBC 11.3 k/uL (3.8-10.6)
[2018-03-19 08:40] LABS: Albumin 3.8 g/dL (3.5-5.0); Calcium 9.2 mg/dL (8.4-10.2); Magnesium 2.4 mg/dL (1.6-2.3); Phosphorus 2.9 mg/dL (2.5-4.5); Potassium 4.3 mmol/L (3.5-5.1); Total Bilirubin 0.3 mg/dL (0.2-1.3); Total Protein 6.4 g/dL (6.3-8.2)
[2018-03-19] MEDS ORDERED: FUROSEMIDE 40 MG TAB PO SCH (09:00)
[2018-03-19] MEDS ORDERED: predniSONE 20 MG TAB PO SCH (09:00)
--- NOTE | 2018-03-19 10:17 | P.PN ---
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, acute exacerbation of CHF, bilateral pleural effusion, community- acquired pneumonia, history of right upper lobe lung mass, 03/17/2018, 87-year-old female with extensive history of smoking and nicotine use also has a history of the ill-defined lung mass in the right upper lobe found about 3 months ago patient refused aggressive intervention including biopsy patient is currently being evaluated with radiographic studies, also has a oral lesion by history with multiple biopsies revealed precancerous which is also being monitor observe, data predominantly obtained from the patient's as well as 2 daughters present at bedside for last 2 weeks patient has not been feeling very well with dyspnea on exertion which progressively got worse intermittent nonproductive dry cough is present as well with those problem patient presented into the emergency department, on day of admission patient got extremely short of breath in the emergency department was not able to talk on arrival due to severe difficulty in breathing was intubated for airway protection at the same time patient was unresponsive as well. Patient was placed on assist control mode with rate of 14, tidal volume of 350, and 100 % oxygen, with PEEP of 5. Put patient on CPAP of 5 and pressure support of 5 weaning parameters reviewed arterial blood gas currently pending patient is off of sedation arousable opens eyes follow simple commands radiographic studies laboratory data reviewed, computed tomography scan of the chest reviewed as well which revealed right upper lobe ill-defined mass along with bilateral pleural effusions and interstitial edema findings are highly suggestive of congestive heart failure however occult pneumonia cannot be excluded, currently patient had treated with broad-spectrum antibiotics in the emergency department now currently only on bronchodilators with DVT and peptic ulcer disease prophylaxis I urine culture is negative sputum is positive for gram-positive cocci with moderate polymorph leukocytes urine, analysis positive for leukocyte esterase 03/18/2018: Patient seen and examined in the ICU with family and nursing at bedside. The patient states she is feeling much better. She is currently on 2 L nasal cannula. She denies shortness of breath, cough, fevers, chills. She has been hemodynamically stable. Her respiratory status appears to be back at baseline. 03/19/18- patient is being seen examined and evaluated on rounds. She is resting up in bed on 2 L of supplemental oxygen via nasal cannula, which is her home dose of oxygen spell. She does have some occasional shortness of breath with exertion and activity however is doing well overall. Feels her breathing is at baseline. Her chest x-ray from this morning has been reviewed. All labs and reports have been reviewed. Objective - Vital Signs Vital signs: Vital Signs Temp 97.8 F 03/19/18 05:28 Pulse 80 03/19/18 08:04 Resp 16 03/19/18 05:28 BP 113/57 03/19/18 05:28 Pulse Ox 99 03/19/18 05:28 Intake & Output 03/18/18 03/19/18 03/19/18 18:59 06:59 18:59 Intake Total 810 Output Total 1485 1000 Balance -675 -1000 Weight 61 kg Intake: IV 50 Sodium Chloride 0.9% 1, 50 000 ml @ 50 mls/hr IV . Q20H STA Rx#:[id number] Oral 760 Output: Urine 1485 1000 Uretheral (Monterroso) 1000 Other: Voiding Method Indwelling Catheter Indwelling Catheter Indwelling Catheter # Voids 0 - Exam Gen.: Patient is alert and oriented 3, no acute distress Cardiovascular: Regular rate and rhythm, S1/S2 Lungs: Diminished breath sounds bilaterally Abdomen: Soft nontender nondistended positive bowel sounds Extremities: No edema - Labs CBC & Chem 7: 03/19/18 07:48 03/19/18 07:48 Labs: Abnormal Lab Results - Last 24 Hours (Table) 03/18/18 03/18/18 03/18/18 Range/Units 12:03 16:56 20:06 WBC (3.8-10.6) k/uL Hgb (11.4-16.0) gm/dL Neutrophils # (1.3-7.7) k/uL Carbon Dioxide (22-30) mmol/L BUN (7-17) mg/dL Creatinine (0.52-1.04) mg/dL Glucose (74-99) mg/dL POC Glucose (mg/dL) 180 H 202 H 215 H (75-99) mg/dL Magnesium (1.6-2.3) mg/dL 03/19/18 03/19/18 03/19/18 Range/Units 06:39 07:48 07:48 WBC 11.3 H (3.8-10.6) k/uL Hgb 11.1 L (11.4-16.0) gm/dL Neutrophils # 8.6 H (1.3-7.7) k/uL Carbon Dioxide 31 H (22-30) mmol/L BUN 33 H (7-17) mg/dL Creatinine 1.22 H (0.52-1.04) mg/dL Glucose 134 H (74-99) mg/dL POC Glucose (mg/dL) 139 H (75-99) mg/dL Magnesium 2.4 H (1.6-2.3) mg/dL Microbiology - Last 24 Hours (Table) 03/16/18 15:35 Blood Culture - Preliminary Blood No Growth after 48 hours 03/16/18 14:19 Blood Culture - Preliminary Blood No Growth after 48 hours 03/17/18 06:50 Urine Culture - Final Urine,Catheterized 03/16/18 15:11 Gram Stain - Final Sputum Sputum Culture - Final Assessment and Plan Assessment: Assessment Acute hypoxic and hypercapnic respirator failure, s/p mechanical ventilation Acute COPD exacerbation Congestive heart failure suspect diastolic and systolic acute heart failure Community-acquired pneumonia Urinary tract infection Right upper lobe mass, being monitored and observed, patient declined aggressive intervention including biopsy Type 2 diabetes mellitus Hypertension hypertensive cardiovascular disease Dyslipidemia Osteoporosis Severe baseline COPD History of oral precancerous lesion which are being monitored and observed Plan Patient could be cleared for discharge in the near future O2 to maintain saturation greater than or equal to 90% Broad-spectrum antibiotics Duo nebs and Pulmicort/Perforomist Steroid taper Deep breathing exercises incentive spirometry DVT and peptic ulcer disease prophylaxis Consult PT and OT I performed an examination of the patient and discussed their management with the nurse practitioner. I have reviewed the nurse practitioner's note and agree with the documented findings and plan of care.
[2018-03-19 11:12] LABS: Glucose,Whole Blood 95 mg/dL (75-99)
--- NOTE | 2018-03-19 13:26 | P.DS ---
Providers Date of admission: 03/16/18 15:22 Expected date of discharge: 03/19/18 Attending physician: Aditya Rodriguez Consults: 03/16/18 15:22 Consult Physician Stat Consulting Provider: Jemal Schaefer Consult Reason/Comments: CHF Do you want consulting provider notified?: Yes 03/17/18 08:42 Consult Physician Stat Consulting Provider: Eduardo Mclain Consult Reason/Comments: icu management Do you want consulting provider notified?: Already Contacted Primary care physician: Lydia Hill Hospital Course: 1. Acute hypercapnic respiratory failure requiring intubation and mechanical ventilation for less than 24 hours 3. Acute COPD exacerbation maintained on bronchodilators and steroid 4. Acute heart failure exacerbation, awaiting echocardiogram. Improved with IV diuresis. 5. Essential hypertension: Blood pressure within acceptable range 6. Right upper lobe mass with lymphadenopathy as a concerns for possible underlying malignancy. Patient is not interested in pursuing any further workup or diagnostic 7. Type 2 diabetes mellitus: Metformin was discontinued secondary to kidney function. Started on Glucotrol 10 mg once a day. 8. CODE STATUS, patient is DO NOT RESUSCITATE/DO NOT INTUBATE Patient improved significantly. She is medically cleared for discharge. She will continue short course of antibiotic and prednisone. She will follow-up with her primary care physician in the office. Plan - Discharge Summary Discharge Rx Participant: No New Discharge Prescriptions: New Doxycycline Hyclate [Vibramycin] 100 mg PO BID 3 Days #6 cap glipiZIDE [Glucotrol] 10 mg PO DAILY #30 tab predniSONE 20 mg PO DAILY #3 tab Continue Aspirin 81 mg PO DAILY Lovastatin [Mevacor] 20 mg PO DAILY Calcium Carbonate [Calcium] 600 mg PO DAILY Albuterol Nebulized [Ventolin Nebulized] 2.5 mg INHALATION RT-TID Ensure 1 can PO BID Budesonide 1 mg INHALATION RT-BID Alendronate Sodium [Fosamax] 70 mg PO TH Albuterol Sulfate [Proair Hfa] 1 - 2 puff INHALATION RT-Q4H PRN PRN Reason: Shortness Of Breath NIFEdipine XL [Procardia XL] 30 mg PO DAILY Mometasone/Formoterol [Dulera 200 Mcg/5 Mcg Inhaler] 2 puff INHALATION RT-BID Lisinopril [Zestril] 2.5 mg PO DAILY Ipratropium Nebulized [Atrovent Nebulized] 0.5 mg INHALATION RT-Q6H Montelukast Sodium [Singulair] 10 mg PO DAILY Discontinued metFORMIN HCL [Glucophage] 1,000 mg PO [id number] Discharge Medication List Albuterol Nebulized [Ventolin Nebulized] 2.5 mg INHALATION RT-TID 01/02/18 [ History] Albuterol Sulfate [Proair Hfa] 1 - 2 puff INHALATION RT-Q4H PRN 01/02/18 [ History] Alendronate Sodium [Fosamax] 70 mg PO TH 01/02/18 [History] Aspirin 81 mg PO DAILY 01/02/18 [History] Budesonide 1 mg INHALATION RT-BID 01/02/18 [History] Calcium Carbonate [Calcium] 600 mg PO DAILY 01/02/18 [History] Ensure 1 can PO BID 01/02/18 [History] Lisinopril [Zestril] 2.5 mg PO DAILY 01/02/18 [History] Lovastatin [Mevacor] 20 mg PO DAILY 01/02/18 [History] Mometasone/Formoterol [Dulera 200 Mcg/5 Mcg Inhaler] 2 puff INHALATION RT-BID [History] NIFEdipine XL [Procardia XL] 30 mg PO DAILY 01/02/18 [History] Ipratropium Nebulized [Atrovent Nebulized] 0.5 mg INHALATION RT-Q6H 03/16/18 [ History] Montelukast Sodium [Singulair] 10 mg PO DAILY 03/16/18 [History] Doxycycline Hyclate [Vibramycin] 100 mg PO BID 3 Days #6 cap 03/19/18 [Rx] glipiZIDE [Glucotrol] 10 mg PO DAILY #30 tab 03/19/18 [Rx] predniSONE 20 mg PO DAILY #3 tab 03/19/18 [Rx] Follow up Appointment(s)/Referral(s): Lydia Hill MD [Primary Care Provider] - 3 Days Discharge Disposition: HOME SELF-CARE
--- NOTE | 2018-03-19 13:50 | CDI ---
Last Revision, September 2017 Documentation Clarification Form Date: 03/19/18 [id number] From: Janie Morrow RN, CCDS Admit Date: 03/16/2018 3:22:00 PM Patient Name: Gisela Loredo Visit Number: [id number] ATTENTION: The Clinical Documentation Specialists (CDI) and [facility] Coding Staff appreciate your assistance in clarifying documentation. Please respond to the clarification below the line at the bottom and electronically sign. The CDI & [facility] Coding staff will review the response and follow-up if needed. Please note: Queries are made part of the Legal Health Record. If you have any questions, please contact the author of this message via ITS. Dr. Leona Cano Abnormal renal function studies are noted in the patients daily Labs. Please provide clinical significance. History/Risk Factors: HTN 01/02/18 Patients baseline BUN/CR/GFR: . Clinical Indicators: Current BUN: 24/31/30/33 Cr: 1.1/1.3/1.38/1.22 GFR : 46/38/35/41 Treatment: IVF: 0.9% NS @ 50 cc/hr Multiple doses of IVP Lasix then changed to 40 mg PO QD In order to capture the severity of condition, please clarify if the condition signifies: Acute renal failure, Please specify etiology (if known): Cortical Necrosis Medullary Necrosis Tubular Necrosis Acute kidney injury Acute on chronic renal failure CKD Stage 1 GFR >90 CKD Stage 2 GFR 60-89 CKD Stage 3 GFR 30-59 CKD Stage 4 GFR 15-29 CKD Stage 5 GFR <15 Chronic renal failure/Chronic Kidney disease (CKD) please stage if known CKD Stage 1 GFR >90 CKD Stage 2 GFR 60-89 CKD Stage 3 GFR 30-59 CKD Stage 4 GFR 15-29 CKD Stage 5 GFR <15 ESRD Other, please specify Unable to determine Please continue to document in your progress notes and discharge summary in order to capture severity of illness and risk of mortality. Include clinical findings that support your diagnosis. Patient does not have chronic kidney disease MTDD
--- NOTE | 2018-03-19 14:07 | CDI ---
Last Revision, September 2017 Documentation Clarification Form Date: 03/19/2018 2:00:00 PM From: Janie Morrow RN, CCDS Admit Date: 03/16/2018 3:22:00 PM Patient Name: Gisela Loredo Visit Number: [id number] ATTENTION: The Clinical Documentation Specialists (CDI) and [facility] Coding Staff appreciate your assistance in clarifying documentation. Please respond to the clarification below the line at the bottom and electronically sign. The CDI & [facility] Coding staff will review the response and follow-up if needed. Please note: Queries are made part of the Legal Health Record. If you have any questions, please contact the author of this message via ITS. Dr. Leona Cano Please indicate clinical significance of abnormal lab values to accurately reflect your patients severity of condition and clarification is needed. History/Risk Factors: COPD, CHF, HTN, DM2, Gerd, Clinical indicators: Hemoglobin: 10.6/8.6/9.1/11.1 Hematocrit: 34.2/27.2/29.3/35.8 Treatment: Labs AM daily In order to capture the severity of condition, please clarify the type of anemia and etiology if known: Chronic blood loss anemia Iron deficiency anemia Drug induced anemia Nutritional anemia Anemia of chronic kidney disease Anemia of chronic disease Unable to determine Other, please specify Please continue to document in your progress notes and discharge summary in order to capture severity of illness and risk of mortality. Include clinical findings that support your diagnosis. MTDD
[2018-03-19 15:13] VITALS: PULSE 80
[2018-03-20] MEDS ORDERED: PANTOPRAZOLE 40 MG TABLET PO SCH (07:30)
== END 2018-03-19 15:50 | disposition home or self-care (01) | DRG 208 ==
LOC: EC 13:49 → 6ICU 15:22 → 5MS5E 03-18 12:45
PROVIDERS: ADMIT Internal Medicine; ATTEND Internal Medicine
PROC: 5A1935Z Respiratory Ventilation, Less than 24 Consecutive Hours (ICD-10-PCS; principal; 2018-03-16)
PROC: 0BH18EZ Insertion of Endotracheal Airway into Trachea, Via Natural or Artificial Opening Endoscopic (ICD-10-PCS; 2018-03-16)
PROC: 5A09357 Assistance with Respiratory Ventilation, Less than 24 Consecutive Hours, Continuous Positive Airway Pressure (ICD-10-PCS; 2018-03-16)
PROC: 0D9670Z Drainage of Stomach with Drainage Device, Via Natural or Artificial Opening (ICD-10-PCS; 2018-03-16)
DX: J96.22 Acute and chronic respiratory failure with hypercapnia (principal); J18.9 Pneumonia, unspecified organism; I50.43 Acute on chronic combined systolic (congestive) and diastolic (congestive) heart failure; J44.1 Chronic obstructive pulmonary disease with (acute) exacerbation; J44.0 Chronic obstructive pulmonary disease with (acute) lower respiratory infection; C34.11 Malignant neoplasm of upper lobe, right bronchus or lung; E87.2 Acidosis; N39.0 Urinary tract infection, site not specified; N17.9 Acute kidney failure, unspecified; I11.0 Hypertensive heart disease with heart failure; I50.9 Heart failure, unspecified; E11.9 Type 2 diabetes mellitus without complications; D64.9 Anemia, unspecified; Z66 Do not resuscitate; J96.21 Acute and chronic respiratory failure with hypoxia; K21.9 Gastro-esophageal reflux disease without esophagitis; E78.5 Hyperlipidemia, unspecified; M81.0 Age-related osteoporosis without current pathological fracture; F41.9 Anxiety disorder, unspecified; R32 Unspecified urinary incontinence; R59.1 Generalized enlarged lymph nodes; Z99.81 Dependence on supplemental oxygen; Z79.82 Long term (current) use of aspirin; Z79.83 Long term (current) use of bisphosphonates; Z79.51 Long term (current) use of inhaled steroids; Z79.84 Long term (current) use of oral hypoglycemic drugs; Z79.52 Long term (current) use of systemic steroids; Z79.899 Other long term (current) drug therapy; Z95.0 Presence of cardiac pacemaker; Z90.710 Acquired absence of both cervix and uterus; Z87.891 Personal history of nicotine dependence; Z86.79 Personal history of other diseases of the circulatory system; Z85.819 Personal history of malignant neoplasm of unspecified site of lip, oral cavity, and pharynx; Z91.040 Latex allergy status; Z88.0 Allergy status to penicillin; Z91.018 Allergy to other foods; Z83.3 Family history of diabetes mellitus; Z80.9 Family history of malignant neoplasm, unspecified
CPT/HCPCS: 31500; 36415; 36600; 43753; 71045; 71046; 71275; 80053; 81001; 82550; 82553; 82805; 83036; 83605; 83735; 83880; 84100; 84132; 84484; 85025; 85379; 85610; 85730; 87040; 87070; 87086; 87205; 93005; 93306; 94002; 94003; 94640; 94660; 94760; 96374; 96375; 99291

== ENCOUNTER → 2018-05-09 | Outpatient (CLI) | payer MEDICARE ==
--- NOTE | 2018-05-09 15:52 | CT ---
EXAMINATION TYPE: CT chest wo con DATE OF EXAM: 05/09/2018 COMPARISON: 01/02/2018 and 03/16/2018 HISTORY: Shortness of breath CT DLP: 211.90 mGycm. Automated Exposure Control for Dose Reduction was Utilized. TECHNIQUE: CT scan of the thorax is performed without IV contrast. FINDINGS: LUNGS: In comparison to the 2 prior exams the peripheral right upper lobe groundglass opacity with no dular component appears stable from the exam of 01/02/2018 with nodular component measuring 1.0 cm on series 4 image 15 and more groundglass component measuring approximately 2.9 x 2.6 cm on series 4 angela ge 18. Again satellite nodules are seen such as on series 4 image 24 and 21, unchanged. Another satel lite pulmonary nodule measuring approximately 2 mm is also unchanged on series 4 image 29. Subpleural right middle lobe 4 mm opacity is unchanged and series 4 image 35.a subpleural right lower lobe 3 mm pulmonary nodule is unchanged on image 49. No new pulmonary nodules identified. There is no pleural effusion or pneumothorax seen. The tracheobronchial tree is patent. MEDIASTINUM: Lack of IV contrast is noted to limit evaluation for mediastinal and especially hilar ad enopathy. There are no definitive greater than 1 cm hilar or mediastinal lymph nodes. No cardiomega ly or pericardial effusion is seen. Extensive calcific atheromatous changes are noted of the thoracic aorta. There is cardiomegaly and left-sided cardiac device as well as severe three-vessel coronary a rtery calcifications. There is enlargement of the main pulmonary artery measuring 3.2 cm, which may r elate to pulmonary arterial hypertension. The descending thoracic aorta is upper limits of normal ayanna suring 3.8 cm just proximal to the diaphragmatic hiatus on sagittal series 7 image 55. OTHER: Vascular stent is seen within the partially visualized abdominal aortic aneurysm. The visuali zed portions of the exam anterior posterior dimension measures up to 6.4 cm. Mild multilevel degenera tive changes of the thoracic spine are noted. IMPRESSION: 1. Stability of the right upper lobe groundglass and subsolid opacity in comparison to the last to pr ior exams dating back to 01/02/2018, however the subsolid composition could relate to slow-growing tray plasm such as bronchoalveolar carcinoma and therefore continued follow-up is recommended at minimum w ith consideration for PET/CT. 2. Partial visualization of an endovascular stent in the known abdominal aortic aneurysm. 3. Enlargement of the main pulmonary artery that may clinically correlate with pulmonary arterial hyp ertension.
== END | disposition home or self-care (01) ==
LOC: RADCTMAIN 13:23
PROVIDERS: ATTEND Internal Medicine Pulmonary Disease
DX: I28.8 Other diseases of pulmonary vessels (principal); R93.0 Abnormal findings on diagnostic imaging of skull and head, not elsewhere classified; Z95.828 Presence of other vascular implants and grafts
CPT/HCPCS: 71250

== ENCOUNTER → 2018-07-02 | Outpatient (CLI) | payer MEDICARE | END | disposition home or self-care (01) | LOC: RADCTMAIN 12:58 | PROVIDERS: ATTEND Surgery | DX: T82.898A Other specified complication of vascular prosthetic devices, implants and grafts, initial encounter (principal) | CPT/HCPCS: 82565; 84520 ==

== ENCOUNTER → 2018-12-11 | Outpatient (CLI) | payer MEDICARE ==
--- NOTE | 2018-12-11 12:55 | CT ---
EXAMINATION TYPE: CT chest wo con DATE OF EXAM: 12/11/2018 COMPARISON: 05/09/2018 HISTORY: SOB, Lung nodules CT DLP: 425 mGycm. Automated Exposure Control for Dose Reduction was Utilized. TECHNIQUE: CT scan of the thorax is performed without IV contrast. FINDINGS: LUNGS: There is a stable right upper lobe peripheral based areas of ill-defined nodularity or mass pr eviously measuring approximately 2.9 x 2.6 cm and measuring 3 x 2.6 cm on today's exam. A more focal nodular 1 cm component is stable. There are numerous subpleural nodules and pulmonary nodules previously described appear to be stable in size and morphology. Interlobular septal thickening predominantly involving the right lung suggestive of interstitial lung disease. No pleural effusion or pneumothorax. No new area of consolidation. Degree of line underlyin g chronic obstructive pulmonary disease suspected. MEDIASTINUM: Lack of IV contrast is noted to limit evaluation for mediastinal and especially hilar ad enopathy. There are no definitive greater than 1 cm hilar or mediastinal lymph nodes. No cardiomega ly or pericardial effusion is seen. Cardiac device is seen and there is atherosclerotic change aorta. Largest measurement of the aorta is 3.5 cm along the descending thoracic aorta proximally and 4 cm d istally compatible with mild aneurysmal dilation. This is slightly increased in size from the prior e xam where it measured 3.8 cm in maximal dimension. There remains enlargement the main pulmonary artery measuring 3.2 cm correlate for pulmonary arterial hypertension. Extensive coronary artery calcification noted. OTHER: Vascular stent is seen within the partially visualized abdominal aortic aneurysm. The visuali zed portions of the exam anterior posterior dimension measures up to 6.4 cm. Mild multilevel degenera tive changes of the thoracic spine are noted. Chronic appearing left-sided rib fracture noted. Access ory spleen noted. Suspicion suspect a exophytic cyst extending off the mid pole right kidney measurin g 1.4 cm and 8 Hounsfield units. . IMPRESSION: 1. Stable right upper lobe groundglass appearing mass or nodule. Numerous additional pulmonary nodule s measuring less than a centimeter also appear to be stable. Differential diagnosis continues to incl ude slow growing neoplasm such as bronchiole alveolar carcinoma. 2. Mild enlargement in the size of the descending thoracic aortic aneurysm measuring 4 cm and previou sly measuring 3.8. 3. Correlate for pulmonary arterial hypertension. 4. Dense coronary artery calcifications
== END | disposition home or self-care (01) ==
LOC: RADCTMAIN 11:48
PROVIDERS: ATTEND Internal Medicine Pulmonary Disease
DX: I71.2 Thoracic aortic aneurysm, without rupture (principal); I25.10 Atherosclerotic heart disease of native coronary artery without angina pectoris; R91.8 Other nonspecific abnormal finding of lung field
CPT/HCPCS: 71250

== ENCOUNTER → 2019-07-06 | Outpatient (CLI) | payer MEDICARE ==
--- NOTE | 2019-07-06 15:12 | CT ---
EXAMINATION TYPE: CT chest wo con DATE OF EXAM: 07/06/2019 COMPARISON: Prior chest CT December 11, 2018 and older CTs back to January 02, 2018. HISTORY: Follow up pulmonary nodule CT DLP: 306 mGycm. Automated Exposure Control for Dose Reduction was Utilized. TECHNIQUE: CT scan of the thorax is performed without IV contrast. FINDINGS: LUNGS: Stable peripheral focus of lobulated masslike consolidation with some areas of aeration measur ing approximately 3.3 x 2.4 cm axial image 18, slightly larger in size versus prior studies with a mo re nodular peripheral component anterior aspect measuring 1.7 x 1.0 cm axial image 15. Stable small a djacent peripheral nodularity anterior inferiorly to this axial image 22 for reference. Small areas o f scarlike opacity and nodularity inferior to this in the right upper lobe and right middle lobe vicki in present. Mild scattered linear scarring and/or fibrosis bilaterally is again seen. MEDIASTINUM: Lack of IV contrast is noted to limit evaluation for mediastinal and especially hilar a denopathy. There are no definitive greater than 1 cm hilar or mediastinal lymph nodes. No pericardi al effusion is seen. Heart size upper limits of normal. Atherosclerotic and ectatic thoracic aorta is again seen. Dual-lead pacemaker is redemonstrated. Descending thoracic aorta measures up to 3.6 cm d iameter axial image 31. There are suspected noncalcified plaque superior aspect aortic knob coronal i mage 32 similar to prior. Coronary calcification is redemonstrated which is noted marker for underlyi ng coronary artery disease. OTHER: There is partial visualization of stent graft and AAA in the midabdomen. IMPRESSION: Fairly stable in size groundglass nodule or nodular consolidation with suspicious areas o f increasing nodularity or nodular consolidation noted. Consider PET/CT follow-up.
== END | disposition home or self-care (01) ==
LOC: RADCTMAIN 13:39
PROVIDERS: ATTEND Internal Medicine Pulmonary Disease
DX: J44.9 Chronic obstructive pulmonary disease, unspecified (principal); J45.51 Severe persistent asthma with (acute) exacerbation; I50.9 Heart failure, unspecified; R91.1 Solitary pulmonary nodule
CPT/HCPCS: 71250

== ENCOUNTER → 2019-08-03 | Outpatient (CLI) | payer MEDICARE ==
--- NOTE | 2019-08-03 13:43 | US ---
EXAMINATION TYPE: US kidneys/renal and bladder DATE OF EXAM: 08/03/2019 COMPARISON: NONE CLINICAL HISTORY: R94.4 Decreased renal fxn. No pain. Urinary incontinence per patient. EXAM MEASUREMENTS: Right Kidney: 7.7 x 3.9 x 3.9 cm Left Kidney: 7.9 x 3.9 x 4.0 cm Right Kidney: Appears small in size. Cortical thinning. Cystic appearing lesions visualized, largest seen medial lower pole - 1.6 x 1.6 x 2.0 cm Left Kidney: Appears small in size. Cortical thinning. Bladder: Moderately distended, anechoic Bilateral Jets seen There is no evidence for hydronephrosis at this point in time. No nephrolithiasis is seen. No suspi cious masses are identified. The urinary bladder is anechoic. Bilateral ureteral jets are seen. IMPRESSION: Mild bilateral cortical renal thinning and atrophy, sequela of medical renal disease with small cysts on the right measuring up to 2.0 cm, appearing benign. No hydronephrosis of either kidne y nor nephrolithiasis.
== END | disposition home or self-care (01) ==
LOC: RADUSWWP 13:02
PROVIDERS: ATTEND Family Medicine
DX: N26.1 Atrophy of kidney (terminal) (principal); N28.89 Other specified disorders of kidney and ureter; N28.1 Cyst of kidney, acquired
CPT/HCPCS: 76770